=== PATIENT | female | born 1975 | race Caucasian/White ===

== ENCOUNTER 2018-04-24 05:30 | Inpatient (IN) | payer MEDICARE ==
[~2018-04-24 05:30] MED LIST: Buffered Lidocaine 0.9% SYRIN* 5 ML/SYR SYRINGE INTRADERM ONE
--- OUTSIDE RECORDS SUMMARY | 2018-04-24 05:34 | XMS REPORT ---
:1975 External Reference #:[id number] Author Organization [facility] Address [address] [address] Phone [phone] Care Team Providers Name Role Phone Sheeba Ortez MD Primary Care Physician Unavailable Payers Type Date Identification Numbers Payment Provider Subscriber Medicare Primary Policy Number: [id number] Medicare [place] PayID: [id number] [address] [place] [address] [facility] Policy Number: [id number] Medicaid [place] Group Name: 1 1 [address] PayID: [id number] [place] [address] Problems Date Description Provider Status Onset: 10/27/2017 Chondromalacia of patella Sheldon Jimenez M.D. Active Onset: 10/27/2017 Enthesopathy of knee Sheldon Jimenez M.D. Active Onset: 10/27/2017 Derangement of knee Sheldon Jimenez M.D. 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 ETOH Use Denies alcohol use Smoking Patient is a current smoker, smokes every day Recreational Drug Use Denies Drug Use Smoking Heavy tobacco smoker (more than 10 cigarettes/day) Exercise Type/Frequency Exercises rarely Allergies, Adverse Reactions, Alerts Date Description Reaction Status Severity Comments 02/07/2015 Vancomycin Urticaria active Medications Medication Date Status Form Strength Qnty SIG Indications Ordering Provider Valacyclovir HCL 00/ Active Tablets 1gm 1 tab Unknown 0000 daily Abilify / Active Tablets 20mg 1 by Unknown 0000 mouth every day Depakote / Active Tablets 500mg [address] by mouth tid a day Lyrica / Active Capsules 300mg 1 by Unknown 0000 mouth tid Multi Complete / Active Capsules daily Unknown 0000 Hydrochlorothiazide / Active Capsules 12.5mg 1 by Unknown 0000 mouth every day Nexium / Active Capsules 20mg [address] mouth every day Levothyroxine Sodium / Active Tablets 25mcg 1 by Unknown 0000 mouth every day Hydrochlorothiazide / Active Tablets 25mg 1 by Unknown 0000 mouth every day Pristiq / Active Tablets 50mg 1 by Unknown 0000 ER 24HR mouth every day Naprosyn 10/27/ Hx Tablets 500mg 60tab One tab M22.41 Sheldon 2018 - s PO bid Tony 01/02/ kathi M.[place] 2017 Cyclobenzaprine HCL / Hx Tablets 10mg one by Unknown 0000 - mouth 10/03/ three 2018 times a day as needed spasm Quetiapine Fumarate / Hx Tablets 100mg 1 by Unknown 0000 - mouth 2017 day Omeprazole / Hx Capsules 20mg 1 by Unknown 0000 - DR mouth 09/27/ 2017 day Sucralfate / Hx Tablets 1gm 1 by Unknown 0000 - mouth 09/27/ twice a 2017 day Oxycodone-Acetaminoph / Hx Tablets 10-325mg 1 tab Unknown en 0000 - by 2017 three times a day as needed Cymbalta / Hx Caps DR 60mg 1 by Unknown 0000 - Part mouth 2017 day Lyrica / Hx Capsules 300mg 1 by Unknown 0000 - mouth a day 2018 Suboxone / Hx Film 8'2 strip Unknown 0000 - sl 03/06/ twice a 2017 day Wellbutrin XL / Hx Tablets 300mg 1 by Unknown 0000 - ER 24HR mouth 2017 day Naproxen Sodium ER / Hx Tablets 500mg take Unknown 0000 - ER 24HR one 07/02/ /tablet 2018 daily by mouth as needed for pain, if pain is severe, you may take up to 2 pills daily for 3 days as needed Vital Signs Date Vital Result Comment 03/28/2018 Height 71 inches 5'11" Weight 220.00 lb Heart Rate 84 /min BP Systolic Recheck 132 mmHg BP Diastolic Recheck 84 mmHg Respiratory Rate 16 /min Body Temperature 98.5 F BMI (Body Mass Index) 30.7 kg/m2 02/28/2018 Height 71 inches 5'11" Weight 228.00 lb Heart Rate 84 /min BP Systolic Recheck 132 mmHg BP Diastolic Recheck 84 mmHg Respiratory Rate 16 /min Body Temperature 98.0 F BMI (Body Mass Index) 31.8 kg/m2 01/27/2018 Height 71 inches 5'11" Weight 221.00 lb Heart Rate 84 /min BP Systolic Recheck 128 mmHg BP Diastolic Recheck 84 mmHg Respiratory Rate 16 /min Body Temperature 98.2 F BMI (Body Mass Index) 30.8 kg/m2 12/22/2017 Height 71 inches 5'11" Weight 220.00 lb Heart Rate 80 /min BP Systolic Recheck 124 mmHg BP Diastolic Recheck 78 mmHg Respiratory Rate 16 /min Body Temperature 98.0 F BMI (Body Mass Index) 30.7 kg/m2 10/27/2017 Height 71 inches 5'11" Weight 210.00 lb Heart Rate 76 /min BP Systolic Recheck 124 mmHg BP Diastolic Recheck 82 mmHg Respiratory Rate 16 /min Body Temperature 98.3 F BMI (Body Mass Index) 29.3 kg/m2 02/07/2015 Height 71 inches 5'11" Weight 217.00 lb Heart Rate 78 /min BP Systolic Sitting 128 mmHg BP Diastolic Sitting 82 mmHg Pain Level 5 neck BMI (Body Mass Index) 30.3 kg/m2 Results Description No Information Procedures Date CPT Code Description Status 02/17/2018 27285 Arthroscopy,Knee,Diagnostic, W Or W/O Synovial BX Completed Encounters Type Date Location Provider CPT E/M Dx Office Visit 01/27/2018 [facility], 09289 M22.41 10:15a [facility] M17.11 Office Visit 12/22/2017 11:15a [facility]ldon Jimeenz, [address] M22.2x1 Of [facility] M.D. M70.51 M22.41 Office Visit 10/27/2017 10:00a [facility] Jimenez, 20276 M22.2x1 Of [facility] M.D. M70.51 M22.41 M22.2x2 M70.52 M22.42 Office Visit 02/07/2015 11:00a [facility] Scott Kaufman, [address] 723.1 Of [facility] 721.0 Plan of Care 03/28/2018 - Sheldon Jimenez M.D.M17.11 Unilateral primary osteoarthritis, right kneeFollow up:4 weeks after knee surgery
[2018-04-24] MEDS ORDERED: ceFAZolin 2 GM PREMIX in ORs 2 GM/50 ML BAG IVPB ONE (06:08)
[2018-04-24] MEDS ORDERED: Buffered Lidocaine 0.9% SYRIN* 5 ML/SYR SYRINGE ONE (06:08)
[2018-04-24] MEDS ORDERED: Bupivacaine 0.5% SDV PF* 30ML VIAL ONE ×2 (07:18→07:41)
[2018-04-24] MEDS ORDERED: Lidocaine 1% MPF wEPI 200,000* 30 ML SDV ONE (07:18)
[2018-04-24] MEDS ORDERED: Levalbuterol 0.63MG/3ML NEB* UNIT OF USE INH ONE (07:30)
[2018-04-24] MEDS ORDERED: fentaNYL* 50 MCG/ML 2 ML VIAL (100 MCG VIAL) ONE ×2 (07:35→10:58)
[2018-04-24] MEDS ORDERED: Midazolam* 1 MG/ML 2 ML VIAL (2 MG) ONE (07:35)
[2018-04-24] MEDS ORDERED: ROPIVACAINE 5 MG/ML 30 ML BTL (0.5%) ONE (07:44)
[2018-04-24] MEDS ORDERED: Tranexamic Acid 1,000 MG in NS 0.9% 50 ML IV ONE (08:00)
[2018-04-24] MEDS ORDERED: Ondansetron INJ* 2 MG/ML VIAL ONE (08:06)
[2018-04-24] MEDS ORDERED: Lidocaine 2% PF * 5 ML VIAL ONE (08:06)
[2018-04-24] MEDS ORDERED: Dexamethasone IV* 4 MG/ML 1 ML (4 MG) ONE (08:06)
[2018-04-24] MEDS ORDERED: Propofol* 10 MG/ML 20 ML BTL IV PUSH ONE (08:06)
[2018-04-24] MEDS ORDERED: Glycopyrrolate IV* 0.2 MG/ML 1 ML VIAL ONE (08:48)
[2018-04-24] MEDS ORDERED: Naloxone* 0.4 MG/ML 1 ML VIAL IV PRN (09:12)
[2018-04-24] MEDS ORDERED: Ibuprofen TAB* 600 MG PO PRN (09:12)
[2018-04-24] MEDS ORDERED: Acetaminophen TAB* 325 MG PO PRN (09:12)
[2018-04-24] MEDS ORDERED: diPHENhydraMINE PO* 25 MG PO PRN (10:25)
[2018-04-24] MEDS ORDERED: Magnesium Hydroxide LIQ* 30 ML UDC PO PRN (10:25)
[2018-04-24] MEDS ORDERED: Ondansetron TAB* 4 MG PO PRN (10:25)
[2018-04-24] MEDS ORDERED: diPHENhydraMINE IV* 50 MG/ML 1 ml VIAL (BENADRYL) IV PRN (10:25)
[2018-04-24] MEDS ORDERED: Ondansetron ODT TAB* 4 MG PO PRN (10:25)
[2018-04-24] MEDS ORDERED: Clobetasol 0.05% OINT* 30 GM TUBE TOPICAL PRN (10:31)
[2018-04-24] MEDS: Pregabalin CAP(*) 300 MG PO SCH ×3 (10:44→21:52)
[2018-04-24] MEDS ORDERED: Ketorolac INJ* 30 MG/ML 1 ML VIAL ONE (10:58)
[2018-04-24] MEDS ORDERED: oxyCODONE TAB* 5 MG TAB ONE (10:58)
[2018-04-24] MEDS ORDERED: HYDROcodone/ACETAMIN 5-325 MG* 1 TAB ONE (10:59)
[2018-04-24] MEDS ORDERED: Heparin VIAL(*) 5000 UNITS/ML VIAL (FIVE THOUSAND) SUBCUT SCH ×2 (11:00→14:00)
[2018-04-24] MEDS: Ketorolac INJ* 30 MG/ML 1 ML VIAL IV PUSH SCH ×3 (11:03→23:16)
[2018-04-24] MEDS ORDERED: Morphine VIAL* 4 MG/ML VIAL (1 ml vial) ONE (12:39)
[2018-04-24] MEDS: D5W 1/2 NS 1000 ML BAG* 1,000 ML IV SCH ×2 (12:44→23:57)
[2018-04-24] MEDS: Acetaminophen TAB* 325 MG PO SCH ×2 (13:23→21:23)
[2018-04-24] MEDS: traMADol TAB* 50 MG PO SCH ×2 (13:24→18:41)
[2018-04-24] MEDS ORDERED: Cyclobenzaprine TAB* 10 MG PO PRN (13:36)
[2018-04-24] MEDS ORDERED: Divalproex DR TAB(*) 500 MG PO SCH (14:00)
[2018-04-24] MEDS: oxyCODONE TAB* 5 MG TAB PO PRN ×2 (14:47→20:03)
[2018-04-24] MEDS: ceFAZolin 1 GM in Dextrose (*) 1 GM/50 ML BAG IVPB SCH (15:58)
[2018-04-24] MEDS: Nicotine PATCH 14 MG/24 HR* PATCH TRANSDERM SCH (15:59)
[2018-04-24] MEDS: Diazepam TAB(*) 5 MG PO PRN (16:05)
[2018-04-24] MEDS ORDERED: Warfarin TAB(*) 10 MG PO ONE (17:00)
[2018-04-24] MEDS: Docusate CAP* 100 MG PO SCH (20:03)
[2018-04-24] MEDS: Magnesium Hydroxide LIQ* 30 ML UDC PO SCH (20:03)
[2018-04-24] MEDS: Morphine VIAL* 4 MG/ML VIAL (1 ml vial) IV PRN (21:44)
[2018-04-24] MEDS: Pregabalin CAP(*) 100 MG PO SCH (21:50)
[2018-04-25] MEDS: ceFAZolin 1 GM in Dextrose (*) 1 GM/50 ML BAG IVPB SCH ×2 (00:02→07:53)
[2018-04-25] MEDS: oxyCODONE TAB* 5 MG TAB PO PRN ×2 (00:06→04:04)
[2018-04-25] MEDS: traMADol TAB* 50 MG PO SCH ×2 (01:03→06:51)
[2018-04-25] MEDS: Morphine VIAL* 4 MG/ML VIAL (1 ml vial) IV PRN ×4 (02:26→14:55)
--- NOTE | 2018-04-25 04:13 | OP ---
DATE OF OPERATION: 04/24/18 - ROOM #343 DATE OF : 79 ATTENDING SURGEON: Sheldon Jimenez MD VALUE STREAM COACH: Colleen Acosta RPA ANESTHESIA: Regional and general. PRE-OP DIAGNOSIS: Osteoarthritis, right knee. POST-OP DIAGNOSIS: Osteoarthritis, right knee. OPERATIVE PROCEDURE: Right total knee arthroplasty. ESTIMATED BLOOD LOSS: Less than 50 cc. COMPLICATIONS: None. HARDWARE: Yoana Persona #6 femur, E tibia, 10-mm polyethylene spacer, 35 mm all polyethylene patellar button. SUMMARY: Ms. العراقي is a 42-year-old female who reports many years worth of bilateral knee pain. When she presented, she had diffuse pain about the patella and initially had been treated conservatively with physical therapy and anti-inflammatories. She was still at pain and because of a spinal stimulator, was unable to have an MRI. CAT scan did show complete loss of the patellofemoral joint where the bone of the patellar was sitting on the bone of the medial femoral condyle. She then underwent a diagnostic knee arthroscopy to evaluate the rest of the knee because if she had good cartilage and menisci in the medial and lateral compartments, I discussed with her doing a partial knee arthroplasty rather than a total. Diagnostic knee arthroscopy showed significant wear on the femoral side of the medial femoral condyle. We sat and talked quite a bit about knee replacement surgery, specifically how my concern about a partial replacement was that as time would go by, she would need a revision to a total knee. The plan that we came to is that we would do a total knee arthroplasty to hopefully avoid the multiple revisions. History of pain medicine usage is an issue as well; she was on bupropion when she first presented, but was getting off of it as she had weaned herself away from the chronic oxycodone that she had been prescribed in the past for her chronic back pain. [place] [facility] [place] she underwent a preoperative genicular block so that we would hopefully have better control of her postoperative pain. The usual risks of surgery such as infection , scar formation, stiffness, DVT, pulmonary embolism, hardware failure were also discussed and she had wished to proceed. I also made it clear that the surgery was just getting the parts into the knee and that the outcome would be dependent on her working with physical therapy to rehab the knee and restore strength, motion, and function. DESCRIPTION OF PROCEDURE: The patient had a block placed in the holding area and was brought back to the OR. LMA was then placed. Reis catheter was also placed. Tourniquet was placed over the proximal right thigh and was used during the case. Total tourniquet time would be 70 minutes. Right knee was then prepped and then draped. Esmarch was used to exsanguinate the leg and the tourniquet was raised. Midline incision was made centered about the patella, was carried for about 6 cm above the patellar and carried down to the medial side of the tibial tubercle. Incision was carried down to the skin and subcutaneous tissues. Small bleeders encountered were ligated using electrocautery. Extensor mechanism was exposed and a sharp parapatellar arthrotomy was made. Quite a bit of clear yellowish joint fluid was encountered. Soft tissues were sharply elevated from the medial side of the tibia and the fat pad were sharply excised. Patella measured 20 mm in thickness and a nice 8 mm cut was taken. She also had bone beyond the inferior pole of the patella, but this was fully embedded within the patellar tendon, so this was not then excised as I did not want to damage that part of her patellar tendon attachments. The patella was then easily subluxated laterally and the knee was flexed up. Nice exposure of the distal femur was obtained. Step drill was used to open the femoral canal. An intramedullary guide was placed. Outrigger was adjusted until it was parallel with the epicondyles and then distal femoral cutting guide was pinned into place. Cutting guide was set at 2 mm of resection with 3 degrees of angulation. This was based on the preoperative measurements and I thought this would give us the essentially perfect alignment. Distal femoral cut was taken. It appeared a nice cut was obtained. Femur was sized and she sat nicely for a 6. Cutting guide was placed , but running through the superior hole, she was sitting a little bit low and appeared I would notch the femur. Cutting guide was moved up several times until the drill came through on the top side of the femur. Cutting guide was then pinned into place and the anterior and posterior femoral cuts followed by the chamfer cuts were taken. Attention was turned to the tibia. Step drill was used to open the tibial canal and the intramedullary guide was placed. Outrigger was assembled and adjusted until it appeared it would take 2 mm from the medial side. Cutting guide was then pinned into place and the proximal tibial cut was taken. Spacer block was then placed and her alignment appeared to be excellent. She was loose in flexion as the system is designed to take an extra 2 mm from the posterior condyles. Tibia was sized and she sat nicely for an E. Proximal tibia was drilled and then punched. Femoral trial was placed and the notch cut was finished and stud holes were drilled. She was trialed with a 10 and came out nicely until full extension, had good stability, and flexed quite easily. Patellar tracking was fine even without the patellar button. Patellar was sized and a 35 seemed to fit perfectly. Holes were drilled and patella was snapped into place. Patellar tracking was still perfect. Trial instrumentation was removed and the knee was copiously pulse lavaged. Cement was being prepared. Posterior aspect of the knee and lateral gutter was injected with a mixture of 30 cc of 2% lidocaine with epinephrine and 0.5% Marcaine. Tibia followed by femur and patellar were all cemented into place. Excess cement was removed and cement was allowed to harden. Once the cement had hardened, she was trialed again with a 10 and had the same wonderful motion and stability. Knee was copiously pulse lavaged and searched for excess cement. Few small pieces were found. Knee was again pulse lavaged and a 10 polyethylene was then snapped into place. Knee was again pulse lavaged and the parapatellar arthrotomy was repaired using interrupted #1 Vicryl sutures. Tourniquet was let down and one bleeder was easily seen and ligated using electrocautery. Knee was again pulse lavaged and the subcutaneous tissues were reapproximated with 2-0 Vicryl. Skin was closed using domenic. Sterile dressing was applied. The patient had the LMA removed in the OR and was stable on transfer to the recovery room. [id number]/[facility] #: [id number] MANFRED
[2018-04-25 05:02] LABS: Hematocrit 34 % (35-47); Mean Platelet Volume 8.3 fL (7.4-10.4); Platelet Count 145 10^3/ul (150-450)
[2018-04-25] MEDS: Acetaminophen TAB* 325 MG PO SCH ×3 (05:07→21:16)
[2018-04-25] MEDS: Ketorolac INJ* 30 MG/ML 1 ML VIAL IV PUSH SCH ×3 (05:08→16:56)
[2018-04-25 05:22] LABS: INR 0.95 (0.77-1.02)
[2018-04-25 05:33] LABS: EGFR Non-African American 86.9 (>60)
[2018-04-25] MEDS: Levothyroxine TAB* 25 MCG TAB PO SCH (06:13)
[2018-04-25] MEDS: Nicotine Patch Removal NOTE FOLLOW UP SCH (06:13)
[2018-04-25] MEDS: Pregabalin CAP(*) 100 MG PO SCH ×3 (06:13→21:19)
[2018-04-25] MEDS: Omeprazole CAP* 20 MG PO SCH (07:54)
--- NOTE | 2018-04-25 08:01 | PN ---
Progress Note - Progress Note Date of Service: 04/25/18 SOAP: Subjective: []Patient seen at bedside, having some difficulty with pain management. Feels Tramadol not helpful. Requesting adjustment in pain medications. Denies SOB, CP, palpitations or dizziness. Objective: [] Vital Signs Temp 97.6 F 04/25/18 04:16 Pulse 65 04/25/18 04:16 Resp 18 04/25/18 06:51 BP 104/53 04/25/18 04:16 Pulse Ox 99 04/25/18 04:16 Intake & Output 04/24/18 04/25/18 04/25/18 18:59 06:59 18:59 Intake Total 2790 1950 Output Total 500 850 Balance 2290 1100 Intake: IV Fluids 2350 990 D5 1/2 NS 990 LR 2300 NS 50ML, Cefazolin 2G 50 Oral 440 960 Output: Reis 250 850 Estimated Blood Loss 250 Laboratory Results - last 24 hr 04/25/18 04/25/18 04/25/18 04:39 04:39 04:39 Hgb 12.0 Hct 34 L Plt Count 145 L MPV 8.3 INR (Anticoag Therapy) 0.95 Sodium 139 Potassium 3.3 L Chloride 105 Carbon Dioxide 28 Anion Gap 6 BUN 19 Creatinine 0.74 Est GFR ( Amer) 105.2 Est GFR (Non-Af Amer) 86.9 BUN/Creatinine Ratio 25.7 H Glucose 118 H Calcium 7.6 L Right knee HUE dry and intact Has baseline foot drop RLE, ankle to neutral calf NT and soft 2+ pedal pulse sensation intact RLE Assessment: []s/p Right total knee arthroplasty POD #1 Plan: []PT/OT WBAT RLE Dressing change 04/26 discontinue Tramadol, increase Oxycodone to 10 mg Coumadin with heparin bridge, 8 mg today Home with outpatient PT and labwork when pain well managed and mastered PT/OT goals.
[2018-04-25] MEDS ORDERED: oxyCODONE TAB* 5 MG TAB PO PRN (08:03)
[2018-04-25] MEDS: ARIPiprazole TAB* 5 MG PO SCH (09:00)
[2018-04-25] MEDS: CMC:Desvenlafaxine (NF) 50 MG TAB PO SCH (09:00)
[2018-04-25] MEDS ORDERED: Hydrochlorothiazide TAB* 25 MG PO SCH ×2 (09:00)
[2018-04-25] MEDS: ValACYclovir (*) 1 GM TAB PO SCH (09:00)
[2018-04-25] MEDS: Docusate CAP* 100 MG PO SCH ×2 (09:00→21:16)
[2018-04-25] MEDS: Magnesium Hydroxide LIQ* 30 ML UDC PO SCH ×2 (09:01→21:17)
[2018-04-25] MEDS: Divalproex ER TAB(*) 500 MG PO SCH (09:08)
[2018-04-25] MEDS: Nicotine PATCH 14 MG/24 HR* PATCH TRANSDERM SCH (10:27)
[2018-04-25] MEDS: Diazepam TAB(*) 5 MG PO PRN ×2 (10:31→18:36)
[2018-04-25] MEDS: Potassium Chlor TAB* 20 MEQ TAB.ER PO SCH (12:51)
[2018-04-25] MEDS ORDERED: traMADol TAB* 50 MG PO PRN (13:11)
[2018-04-25] MEDS ORDERED: HYDROcodone/ACETAMIN 5-325 MG* 1 TAB PO PRN (13:12)
[2018-04-25] MEDS ORDERED: Morphine TAB Extended Release (*) 15 MG TAB.ER PO SCH (14:00)
[2018-04-25] MEDS: Heparin VIAL(*) 5000 UNITS/ML VIAL (FIVE THOUSAND) SUBCUT SCH ×2 (14:49→21:17)
[2018-04-25] MEDS ORDERED: Warfarin TAB(*) 4 MG PO ONE (17:00)
[2018-04-25] MEDS: HYDROcodone/ACETAMIN 5-325 MG* 1 TAB PO PRN (17:19)
[2018-04-25] MEDS ORDERED: Amitriptyline TAB* 25 MG PO SCH (21:00)
[2018-04-25] MEDS: oxyCODONE TAB* 5 MG TAB PO SCH (23:15)
[2018-04-26] MEDS: Ketorolac INJ* 30 MG/ML 1 ML VIAL IV PUSH SCH ×3 (00:56→11:20)
[2018-04-26] MEDS: Diazepam TAB(*) 5 MG PO PRN (04:02)
[2018-04-26] MEDS: Acetaminophen TAB* 325 MG PO SCH (05:12)
[2018-04-26 05:45] LABS: Hematocrit 34 % (35-47); Hemoglobin 12.2 g/dl (12.0-16.0); Mean Platelet Volume 7.4 fL (7.4-10.4); Platelet Count 127 10^3/ul (150-450)
[2018-04-26 05:50] LABS: INR 1.62 (0.77-1.02)
[2018-04-26] MEDS: Pregabalin CAP(*) 100 MG PO SCH ×2 (06:20→11:20)
[2018-04-26] MEDS: Heparin VIAL(*) 5000 UNITS/ML VIAL (FIVE THOUSAND) SUBCUT SCH (06:20)
[2018-04-26] MEDS: Levothyroxine TAB* 25 MCG TAB PO SCH (06:21)
[2018-04-26] MEDS: Nicotine Patch Removal NOTE FOLLOW UP SCH (06:21)
[2018-04-26] MEDS: oxyCODONE TAB* 5 MG TAB PO SCH (06:21)
[2018-04-26] MEDS: Omeprazole CAP* 20 MG PO SCH (07:50)
[2018-04-26] MEDS: Docusate CAP* 100 MG PO SCH (08:57)
[2018-04-26] MEDS: HYDROcodone/ACETAMIN 5-325 MG* 1 TAB PO PRN (08:57)
[2018-04-26] MEDS: Potassium Chlor TAB* 20 MEQ TAB.ER PO SCH (08:58)
[2018-04-26] MEDS: CMC:Desvenlafaxine (NF) 50 MG TAB PO SCH (08:58)
[2018-04-26] MEDS: ARIPiprazole TAB* 5 MG PO SCH (08:58)
[2018-04-26] MEDS: Divalproex ER TAB(*) 500 MG PO SCH (08:58)
[2018-04-26] MEDS: ValACYclovir (*) 1 GM TAB PO SCH (08:58)
[2018-04-26] MEDS: Nicotine PATCH 14 MG/24 HR* PATCH TRANSDERM SCH (09:00)
[2018-04-26 09:22] LABS: EGFR Non-African American 79.4 (>60)
[2018-04-26] MEDS: Magnesium Hydroxide LIQ* 30 ML UDC PO SCH (10:00)
--- NOTE | 2018-04-26 10:27 | PN ---
Progress Note - Progress Note Date of Service: 04/26/18 SOAP: Subjective: []Patient seen and examined at bedside. Her pain is better controlled today. Denies CP, SOB, dizziness, nausea. Objective: []General: Well appearing, NAD RLE: Right knee dressing changed, incision CDI without erythema or discharge. Thigh is soft. DF/PF intact, sensation intact distally, DP2+ Calves supple and nontender without erythema, edema or palpable cords Assessment: [] s/p Right total knee arthroplasty POD #2 Plan: []PT/OT WBAT RLE Coumadin with heparin bridge, 6 mg today DC to Home with outpatient PT and labwork Pain control discussed with Dr Jimenez, patient will be sent home with oxycodone 10 mg TID week 1, BID week two and QD week three. She can use tramadol for breakthrough pain. I will also put her on celebrex Vital Signs Temp 98.9 F 04/26/18 07:25 Pulse 82 04/26/18 07:25 Resp 18 04/26/18 08:57 BP 128/58 04/26/18 07:25 Pulse Ox 94 04/26/18 08:00 Intake & Output 04/25/18 04/26/18 04/26/18 18:59 06:59 18:59 Intake Total 2005 290 230 Output Total 700 800 Balance 1306 -510 230 Intake: IV Fluids 1056 ABX - CEFAZOLIN 50 D5 1/2 NS 1006 Oral 950 290 230 Output: Urine 700 800 Other: Estimated Void Large # Voids 1 Laboratory Last Values Hgb 12.2 g/dl (12.0-16.0) 04/26/18 05:34 Hct 34 % (35-47) L 04/26/18 05:34 Plt Count 127 10^3/ul (150-450) L 04/26/18 05:34 MPV 7.4 fL (7.4-10.4) 04/26/18 05:34 INR (Anticoag Therapy) 1.62 (0.77-1.02) H 04/26/18 05:34 Sodium 138 mmol/L (135-145) 04/26/18 05:34 Potassium 3.9 mmol/L (3.5-5.0) 04/26/18 05:34 Chloride 103 mmol/L (101-111) 04/26/18 05:34 Carbon Dioxide 33 mmol/L (22-32) H 04/26/18 05:34 Anion Gap 2 mmol/L (2-11) 04/26/18 05:34 BUN 14 mg/dL (6-24) 04/26/18 05:34 Creatinine 0.80 mg/dL (0.51-0.95) 04/26/18 05:34 Est GFR ( Amer) 96.1 (>60) 04/26/18 05:34 Est GFR (Non-Af Amer) 79.4 (>60) 04/26/18 05:34 BUN/Creatinine Ratio 17.5 (8-20) 04/26/18 05:34 Glucose 109 mg/dL (70-100) H 04/26/18 05:34 Calcium 8.1 mg/dL (8.6-10.3) L 04/26/18 05:34
[2018-04-26 11:14] VITALS: BP 132/69
--- NOTE | 2018-04-27 08:49 | DS ---
AMENDED REPORT NOW INCLUDES DESIGNATED COSIGNER DISCHARGE SUMMARY: DATE OF ADMISSION: 04/24/18 DATE OF DISCHARGE: 04/26/18 SURGEON AND ATTENDING ORTHOPEDIC PROVIDER: Dr. Sheldon Jimenez.* (DICTATED BY CHRISTA PRIEST) SENIOR JAVA ARCHITECT: CHRISTA Priest. PRE-OP DIAGNOSIS: Osteoarthritis of the right knee. OPERATIVE PROCEDURE: Left total knee arthroplasty. HISTORY: Ms. العراقي is a 42-year-old female with years of increasingly severe right knee pain that was not relieved with conservative management. She elected to undergo left total knee arthroplasty. HOSPITAL COURSE: The patient was admitted to [facility] on . She underwent right total knee arthroplasty without complication. Postop day 1, she was well appearing, in no acute distress. Dressing was clean, dry, and intact. Dorsiflexion and plantarflexion intact. Sensation intact distally. She was having difficulty with pain, so consultation with Pain Management occurred who recommended placing her on long-acting morphine, tramadol, [place], and amitriptyline. This was not successful in controlling her pain, later that night Dr. Jimenez added 10 mg of oxycodone, which did seem to help her pain. Postop day 2, she was well appearing, in no acute distress. Right knee dressing was changed. Incision is clean, dry, and intact without erythema and discharge. Thigh was soft. Dorsiflexion and plantarflexion intact. Sensation intact distally. Dorsalis pedis pulses 2+. Calf supple, nontender without erythema edema or palpable cords. Vital Signs: Temperature 98.9, pulse 83, respiratory rate 18, blood pressure 128/54, pulse ox 94. LAB VALUES: Hemoglobin 12.2, hematocrit 34. INR 1.62. Potassium 3.9. DISCHARGE MEDICATIONS: 1. Celebrex 200 mg p.o. q.a.m. 2. Keflex 500 mg capsules per instructions to continue until the end of prescription. 3. Hydrochlorothiazide 37.5 mg p.o. q.a.m. 4. Multivitamin 1 tab p.o. q.a.m. 5. Lyrica 300 mg p.o. at 0600, 1200, and 2100. 6. Valtrex 1 g p.o. q.a.m. 7. Levothyroxine 25 mcg p.o. q.a.m. 8. Nexium 20 mg p.o. q.a.m. 9. Depakote 500 mg p.o. t.i.d. 10. Abilify 10 mg p.o. q.a.m. 11. Betamethasone 0.05% ointment 1 tube application p.o. q.a.m. 12. Desvenlafaxine ER 50 mg p.o. daily. 13. Acetaminophen 975 mg p.o. q.8 hours. 14. Amitriptyline 25 mg p.o. at bedtime. 15. Docusate 100 mg p.o. b.i.d. 16. Nicotine patch please remove in next 24 hours. 17. Oxycodone 10 mg p.o. q.8 hours for 1 week. We will then transition to 10 mg p.o. q.12 hours for the following week and the third week she will be at 10 mg p.o. q.24 hours. 18. Tramadol 50 mg p.o. q.6 hours p.r.n. 19. Warfarin 2 mg tabs 1 to 3 times daily. Dose depends on INR. DISCHARGE PLAN: The patient will be weightbearing as tolerated. She will be discharged to home. She will have INR draws at [facility] on Mondays and for Coumadin dosing. She will take 6 mg of Coumadin on 04/26/18. She will recheck INR on 04/27/18 for further dosing instructions. Pain control oxycodone 5 mg, week 1 please take 2 tabs every 8 hours, week 2 please take 2 tabs every 12 hours, week 3 please take 2 tabs daily. Ultram 60 mg 1 tab every 6 hours as needed for pain, max of 4 per day. Amitriptyline 25 mg take 1 tablet at bedtime for pain, discontinue when pain allows. Celebrex 100 mg p.o. q.12 hours for pain control and discontinue when pain allows. It seems the patient has Celebrex 200 mg tabs at home, it is okay if she does take Celebrex 200 mg once daily, if already has this at her house. Valium 5 mg to take 1 tab every 8 hours as needed for muscle spasm. Please wean off of Valium , oxycodone, and Ultram as soon as her pain allows. Hold these medications for sedation. Followup with Dr. Jimenez in 4 weeks, sooner with any questions or concerns. DISCHARGE DISPOSITION: To home. CHRISTA LOVELL [id number]/[facility] #: [id number] MANFRED
[2018-04-27] MEDS ORDERED: Hydrochlorothiazide TAB* 25 MG PO SCH (09:00)
== END 2018-04-26 12:15 | disposition home or self-care (01) | DRG 470 ==
LOC: AA 05:30 → MERGE 07:30 → SSU 10:25
PROVIDERS: ADMIT Orthopaedic Surgery; ATTEND Orthopaedic Surgery
PROC: 0SRC0J9 Replacement of Right Knee Joint with Synthetic Substitute, Cemented, Open Approach (ICD-10-PCS; principal; 2018-04-24 07:30)
DX: M17.11 Unilateral primary osteoarthritis, right knee (principal); F17.210 Nicotine dependence, cigarettes, uncomplicated; I10 Essential (primary) hypertension; K21.9 Gastro-esophageal reflux disease without esophagitis; E03.9 Hypothyroidism, unspecified; F31.9 Bipolar disorder, unspecified; G89.29 Other chronic pain; F41.9 Anxiety disorder, unspecified; M54.9 Dorsalgia, unspecified; Z88.1 Allergy status to other antibiotic agents; Z98.1 Arthrodesis status; Z79.01 Long term (current) use of anticoagulants
CPT/HCPCS: 36415; 80048; 81025; 85014; 85018; 85049; 85610; 88305; 88311; 90686; A9270-GY; C1776; G8978-GP-CJ; G8979-GP-CI; G8987-GO-CJ; G8988-GO-CJ; G8989-GO-CJ; J0690; J1100; J1644; J1885; J2001; J2250; J2270; J2405; J2704; J2795; J3010

== ENCOUNTER → 2018-05-12 15:22 | Emergency (ER) | payer MEDICARE, MEDICAID ==
--- OUTSIDE RECORDS SUMMARY | 2018-05-12 15:46 | XMS REPORT | Continuity of Care Document ---
:1975 External Reference #:[id number] Author Name SudarshanCecea Care Team Providers Name Role Phone Sheeba Ortez MD Primary Care Physician Unavailable Payers Type Date Identification Numbers Payment Provider Subscriber Policy Number: [id number] Medicare Tyra العراقي PayID: [id number] [address] [place] [address] Policy Number: [id number] Medicaid Tyra العراقي Group Name: 1 1 [address] PayID: [id number] [place] [address] Advance Directives Description No Information Available Problems Date Description Provider Status Onset: 05/04/2018 Encounter for other orthopedic Sheldon Jimenez M.D. Active aftercare Onset: 05/04/2018 Arthroplasty of knee Sheldon Jimenez M.D. Active Onset: 05/04/2018 Localized, primary osteoarthritis Sheldon Jimenez M.D. Active Onset: 10/27/2017 Chondromalacia of patella Sheldon Jimenez M.D. Active Onset: 10/27/2017 Enthesopathy of knee Sheldon Jimenez M.D. Active Onset: 10/27/2017 Derangement of knee Sheldon Jimenez M.D. 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 ETOH Use Denies alcohol use Tobacco Use Start: Unknown Patient is a current smoker, smokes every day Recreational Drug Use Denies Drug Use Tobacco Use Start: Unknown Heavy tobacco smoker (more than 10 cigarettes/day) Smoking Status Reviewed: 05/04/18 Heavy tobacco smoker (more than 10 cigarettes/day) Exercise Type/Frequency Exercises rarely Allergies, Adverse Reactions, Alerts Date Description Reaction Status Severity Comments 02/07/2015 Vancomycin Urticaria Active Medications Medication Date Status Form Strength Qnty SIG Indications Ordering Provider Oxycodone HCL 05/04 Active Tablets 10mg 6tabs one tab by M17. mouth qhs Tony, as needed M.D. (in addition to the 4 5 mg tabs daily) Amitriptyline HCL 04/26 Active Tablets 25mg 14tab 1 tab daily s before bed Leonard Jimenez Docusate Sodium 04/26 Active Tablets 100mg 90tab 1 tab every s 12 hours as Tony, needed for M.D. constipatio n Oxycodone HCL 04/26 Active Tablets 5mg 28tab 2 tabs by s mouth twice Tony, a day as M.D. needed, or can use one tab every 6 hours as needed instead, mdd [address] Ultram 04/26 Active Tablets 50mg 56tab 2 tab every s 6 hours as Tony, needed for M.D. pain, take with 2 regular strength tylenol Celebrex 04/26 Active Capsules 100mg 30cap 1 tab every s 12 hours as Tony, needed for M.D. pain Coumadin 04/26 Active Tablets 2mg 90tab 1-3 tabs s daily dose Tony, per inr M.D. draws Valium 04/26 Active Tablets 5mg 30tab 1 tab every s 8 hours as Tony, needed for M.D. spasm Walker [employer] 04/04 Active Misc 1-06/06" 1unit 1 rolling M1. Wheels/ s lita Jimenez, Adjustment 71 inches M.D. Holes/-06/06" wt 220 lbs Shower Chair 04/04 Active 1unit Disp 1 M112.07ne s shower Yakavitha, chair ht 71 MD wt220 Toilet Seat 04/04 Active Misc 1unit Disp 1 M17.11 [facility] s toilet seat Columba, josie ht 71 MD wt 220 Valacyclovir HCL Active Tablets 1gm 1 tab daily Unknown /0000 Abilify Active Tablets 20mg 1 by mouth Unknown /0000 every day Depakote Active Tablets 500mg 1 tab by Unknown /0000 DR mouth tid a day Lyrica Active Capsules 300mg 1 by mouth Unknown /0000 tid Multi Complete Active Capsules daily Unknown / Hydrochlorothiazid Active Capsules 12.5mg 1 by mouth Unknown e /0000 every day Nexium Active Capsules 20mg 1 by mouth Unknown / DR every day Levothyroxine Active Tablets 25mcg 1 by mouth Unknown Sodium /0000 every day Hydrochlorothiazid Active Tablets 25mg 1 by mouth Unknown e / every day Pristiq Active Tablets 50mg 1 by mouth Unknown / ER 24HR every day Naprosyn 10/27 Hx Tablets 500mg 60tab One tab PO M22.41 s bid Daniel Leach M.D. 01/02 Cyclobenzaprine Hx Tablets 10mg one by Unknown HCL /0000 mouth three - times a day 10/03 as needed spasm Quetiapine Hx Tablets 100mg 1 by mouth Unknown Fumarate / every day - 10/03 Omeprazole Hx Capsules 20mg 1 by mouth Unknown / DR every day - 09/27 Sucralfate Hx Tablets 1gm 1 by mouth Unknown /0000 twice a day - 09/27 Oxycodone-Acetamin Hx Tablets 10-325mg 1 tab by Unknown ophen /0000 mouth three - times a day 09/27 as needed /[address] 60mg 1 by mouth Unknown /0000 Part every day - 02/27 Lyrica Hx Capsules 300mg 1 by mouth Unknown /0000 a day - 10/03 Suboxone Hx Film 8'2 strip sl Unknown /0000 twice a day - 03/06 Wellbutrin XL Hx Tablets 300mg 1 by mouth Unknown /0000 ER 24HR every day - 02/27 Naproxen Sodium ER 00 Hx Tablets 500mg take one /0000 ER 24HR /tablet - daily by 11/28 mouth needed for pain, if pain is severe, you may take up to 2 pills daily for 3 days as needed Immunizations Description No Information Available Vital Signs Date Vital Result Comment 05/04/2018 8:55am Height 71 inches 5'11" Weight 239.00 lb Heart Rate 80 /min BP Systolic Recheck 132 mmHg BP Diastolic Recheck 84 mmHg Respiratory Rate 16 /min Body Temperature 98.0 F BMI (Body Mass Index) 33.3 kg/m2 03/28/2018 10:29am Height 71 inches 5'11" Weight 220.00 lb Heart Rate 84 /min BP Systolic Recheck 132 mmHg BP Diastolic Recheck 84 mmHg Respiratory Rate 16 /min Body Temperature 98.5 F BMI (Body Mass Index) 30.7 kg/m2 02/28/2018 10:42am Height 71 inches 5'11" Weight 228.00 lb Heart Rate 84 /min BP Systolic Recheck 132 mmHg BP Diastolic Recheck 84 mmHg Respiratory Rate 16 /min Body Temperature 98.0 F BMI (Body Mass Index) 31.8 kg/m2 01/27/2018 10:35am Height 71 inches 5'11" Weight 221.00 lb Heart Rate 84 /min BP Systolic Recheck 128 mmHg BP Diastolic Recheck 84 mmHg Respiratory Rate 16 /min Body Temperature 98.2 F BMI (Body Mass Index) 30.8 kg/m2 12/22/2017 11:18am Height 71 inches 5'11" Weight 220.00 lb Heart Rate 80 /min BP Systolic Recheck 124 mmHg BP Diastolic Recheck 78 mmHg Respiratory Rate 16 /min Body Temperature 98.0 F BMI (Body Mass Index) 30.7 kg/m2 10/27/2017 9:58am Height 71 inches 5'11" Weight 210.00 lb Heart Rate 76 /min BP Systolic Recheck 124 mmHg BP Diastolic Recheck 82 mmHg Respiratory Rate 16 /min Body Temperature 98.3 F BMI (Body Mass Index) 29.3 kg/m2 02/07/2015 11:08am Height 71 inches 5'11" Weight 217.00 lb Heart Rate 78 /min BP Systolic Sitting 128 mmHg BP Diastolic Sitting 82 mmHg Pain Level 5 neck BMI (Body Mass Index) 30.3 kg/m2 Results Test Date Facility Test Result H/L Range Note CBC Auto Diff 04/11/2018 [facility] White Blood 9.3 10^3/uL N 3.5-10.[address] [place] [address] [phone] Red Blood Count 4.52 10^6/uL N 4.00-5.40 Hemoglobin 15.2 g/dL N 12.0-16.0 Hematocrit 43 % N 35-47 Mean Corpuscular Volume 96 fL N 80-97 Mean Corpuscular Hemoglobin 34 pg High 27-31 Mean Corpuscular HGB Conc 35 g/dL N 31-36 Red Cell Distribution Width 14 % N 10.5-15 Platelet Count 165 10^3/uL N 150-450 Mean Platelet Volume 8.2 fL N 7.4-10.4 Abs Neutrophils 5.6 10^3/uL N 1.5-7.7 Abs Lymphocytes 3.2 10^3/uL N 1.0-4.8 Abs Monocytes 0.4 10^3/uL N 0-0.8 Abs Eosinophils 0.1 10^3/uL N 0-0.6 Abs Basophils 0 10^3/uL N 0-0.2 Abs Nucleated RBC 0 10^3/uL Granulocyte % 60.0 % N 38-83 Lymphocyte % 34.2 % N 25-47 Monocyte % 4.0 % N 0-7 Eosinophil % 1.3 % N 0-6 Basophil % 0.5 % N 0-2 Nucleated Red Blood Cells % 0 Inr/Protime 04/11/2018 [facility] Inr 0.80 N 0.77-1.[address] [place] [address] [phone] Laboratory test 04/11/2018 [facility] Partial 29.6 seconds N 26.0-36.[address] [place] [address] PTT [phone] Urinalysis 04/11/2018 [facility] Urine Color Yellow Profile [address] [place] [address] [phone] Urine Appearance Clear Urine Specific [place] 1.023 N 1.010-1.030 Urine pH 5.0 N 5-9 Urine Urobilinogen Negative Negative Urine Ketones Negative Negative Urine Protein Negative Negative Urine Leukocytes Negative Negative Urine Blood Negative Negative * * Abnormal Negative 3 Urine Nitrite Negative Negative Urine Bilirubin Negative Negative Urine Glucose Negative Negative Type & Screen 04/11/2018 [facility] Patient Blood Type A Negative [address] [place] [address] [phone] Antibody Screen NEGATIVE Comp Metabolic Panel 04/11/2018 [facility] Sodium 140 mmol/L N 135-[address] [place] [address] [phone] Potassium 4.1 mmol/L N 3.5-5.0 Chloride 106 mmol/L N 101-111 Co2 Carbon Dioxide 27 mmol/L N 22-32 Anion Gap 7 mmol/L N 2-11 Glucose 84 mg/dL N 70-100 Blood Urea Nitrogen 30 mg/dL High 6-24 Creatinine 0.78 mg/dL N 0.51-0.95 BUN/Creatinine Ratio 38.5 High 8-20 Calcium 9.5 mg/dL N 8.6-10.3 Total Protein 6.4 g/dL N 6.4-8.9 Albumin 4.1 g/dL N 3.2-5.2 Globulin 2.3 g/dL N 2-4 Albumin/Globulin Ratio 1.8 N 1-3 Total Bilirubin 0.30 mg/dL N 0.2-1.0 Alkaline Phosphatase 51 U/L N 34-104 Alt 16 U/L N 7-52 Ast 14 U/L N 13-39 Egfr Non- 81.8 >60 Egfr 99.0 >60 4 Laboratory test 04/11/2018 [facility] HCG < 0.60 mIU/ mL 5 [address] [place] [address] [phone] Urine Culture And 04/11/2018 [facility] Urine Culture SEE RESULT [address] [place] [address] [phone] 1 AA 04/24 2 AA 04/24 3 *Ascorbic acid is present which may interfere with detection of blood. 4 Because ethnic data is not always readily available, this report includes an eGFR for both -Americans and non- Americans. The National Kidney Disease Education Program (NKDEP) does not endorse the use of the MDRD equation for patients that are not between the ages of 18 and 70, are , have extremes of body size, muscle mass, or nutritional status, or are non- or non-. According to the National Kidney Foundation, irrespective of diagnosis, the stage of the disease is based on the level of kidney function: Stage Description GFR(mL/min/1.73 m(2)) 1 Kidney damage with normal or decreased GFR 90 2 Kidney damage with mild decrease in GFR 60-89 3 Moderate decrease in GFR 30-59 4 Severe decrease in GFR 15-29 5 Kidney failure <15 (or dialysis) 5 <5.0 Negative 5.0 - 25.0 Indeterminate (Repeat testing recommended after 72 hours) >25.0 Positive Perimenopausal women can display HCG levels of up to 20 mIU/mL 6 SEE RESULT BELOW Name: TYRA العراقي : [address]: Sheldon Jimenez MD Acct: [id number] Unit: [id number] AGE: 42 Location: [facility] Re04/11/18 SEX: F Status: REG REF SPEC: [id number] MAURICIO: 04/11/18-1215 [facility] DR: Sheldon Jimenez MD REQ: [id number] RECD: 04/11/183370 STATUS: COMP _ SOURCE: URINE SPDESC: ORDERED: Urine Culture COMMENTS: PAIGE 04/24 QUERIES: Urine Source: Clean Catch Procedure Result Reported Site Urine Culture Final 04/13/18- 0853 ML No Growth (<1,000 CFU/mL) * ML - Main Lab . END OF REPORT DEPARTMENT OF PATHOLOGY, [address] [place] [address] Andrea Isidro M.D. Director [facility] # [id number] Procedures Date Code Description Status 04/24/2018 15554 TKR Total Knee Replacement Completed 04/24/2018 61118 TKR Total Knee Replacement Completed 02/17/2018 50889 Arthroscopy,Knee,Diagnostic, W Or W/O Synovial BX Completed Encounters Type Date Location Provider Dx Diagnosis Office Visit 03/28/2018 Orthopedic Sheldon Jimenez M17.11 Unilateral primary 10:30a [facility] osteoarthritis, right AT [place] knee Office Visit 01/27/2018 Le Lazar2.41 Chondromalacia 10:15a [facility] patellae, right knee AT [place] M17.11 Unilateral primary osteoarthritis, right knee Office Visit 12/22/2017 Keagan Nix.2x1 Patellofemoral 11:15a [facility] M.D. 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 disorders, right AT [place] knee M70.51 Other bursitis of knee, right knee M22.41 Chondromalacia patellae, right knee M22.2x2 Patellofemoral disorders, left knee M70.52 Other bursitis of knee, left knee M22.42 Chondromalacia patellae, left knee Office Visit 02/07/2015 11:00a Neurosurgery Scott Snow 723.1 Cervicalgia [facility] M.D. 721.0 Spondylosis Cervical W/O Myelopathy Plan of Treatment Future Appointment(s):05/19/2018 11:00 am - Sheldon Jimenez M.D. at [facility] AT [place]/06/2018 - Sheldon Jimenez M.D.M17.11 Unilateral primary osteoarthritis, right kneeNew Medication:Oxycodone HCL 10 mg - one tab by mouth qhs as needed (in addition to the 4 5 mg tabs daily)Z47.89 Encounter for other orthopedic besfqejceW01.651 Presence of right artificial knee jointFollow up:2 to 3 weeks
--- NOTE | 2018-05-12 16:42 | ED ---
Lower Extremity - HPI Summary HPI Summary: Patient is a 42-year-old female with history of a right knee replacement per Dr. Jimenez resenting to the ED with possible patellar dislocation which occurred earlier this afternoon. She states she was able to reduce the patella at home. She also endorses some redness, swelling, incisional drainage and warmth to the knee over the past few days. She was prescribed doxycycline 2 days ago and symptoms improved. She denies any of the symptoms currently. She has recently weaned off her walker and had started using a cane. She does admit to not wearing her knee brace this afternoon when this occurred. Denies any other symptoms at this time. She's been denying any fevers, sweats, chills the last few days. - History of Current Complaint Chief Complaint: EDExtremityLower Stated Complaint: RT LEG PAIN Time Seen by Provider: 05/12/18 15:27 Hx Obtained From: Patient Mechanism Of Injury: Twisted Onset of Pain: Hours Onset/Duration: Hours Severity Initially: Mild Severity Currently: Mild Pain Intensity: 6 Pain Scale Used: 0-10 Numeric Timing: Constant Location: Is Discrete @ - right knee Character Of Pain: Aching Associated Signs And Symptoms: Negative: Swelling, Redness, Bruising, Fever, Weakness Aggravating Factor(s): Standing, Ambulation Alleviating Factor(s): Rest Able to Bear Weight: No - Risk Factors DVT Risk Factors: Negative, Recent Surgery Septic Arthritis Risk Factor: Negative - Allergies/Home Medications Allergies/Adverse Reactions: Allergies Allergy/AdvReac Type Severity Reaction Status Date / Time vancomycin Allergy Severe Itching Verified 05/12/18 15:36 and keli Adhesive Tape [Paper Tape] Allergy Rash Verified 05/12/18 15:36 PMH/Surg Hx/FS Hx/Imm Hx Previously Healthy: Yes Endocrine/Hematology History: Reports: Hx Thyroid Disease GI History: Reports: Hx Gastroesophageal Reflux Disease History: Reports: Hx Kidney Stones Musculoskeletal History: Reports: Hx Arthritis Sensory History: Reports: Hx Contacts or Glasses - glasses Denies: Hx Hearing Aid Opthamlomology History: Reports: Hx Contacts or Glasses - glasses Neurological History: Reports: Hx Migraine, Hx Nerve Disease - nerve damage RLE from a previous surgery- has drop foot Psychiatric History: Reports: Hx Anxiety, Hx Depression - Cancer History Hx Chemotherapy: No - Surgical History Surgery Procedure, Year, and Place: bilat knees arthroscopic surgeries. lateral release right knee, back surgery for herniated disc 2013. left rotator cuff repair. neck surgery 2007, kidney stone surgery. tubal ligation, UTERINE ablation. bone stimulator [id number]. injections in back, neck, knees for pain Hx Anesthesia Reactions: No - Immunization History Hx Pertussis Vaccination: No Immunizations Up to Date: Yes Infectious Disease History: No Infectious Disease History: Reports: Hx of Known/Suspected MRSA - ICU swab Denies: Traveled Outside the [place] in Last 30 Days - Social History Occupation: Unemployed Lives: With Family Alcohol Use: None Hx Substance Use: No Substance Use Type: Reports: None Substance Use Comment - Amount & Last Used: for pain- occassionally Hx Tobacco Use: Yes Smoking Status (MU): Heavy Every Day Tobacco Smoker Amount Used/How Often: 1 ppd since [age] years old, off and on Review of Systems Constitutional: Negative Negative: Fever, Chills, Fatigue, Skin Diaphoresis Negative: Palpitations, Chest Pain Negative: Shortness Of Breath, Cough Genitourinary: Negative Positive: no symptoms reported, see HPI Positive: Arthralgia - right knee pain Positive: Other - warmth to the knee Neurological: Negative All Other Systems Reviewed And Are Negative: Yes Physical Exam Triage Information Reviewed: Yes Vital Signs On Initial Exam: Initial Vitals Temp Pulse Resp BP Pulse Ox 97.7 F 101 18 151/78 99 05/12/18 15:30 05/12/18 15:30 05/12/18 15:30 05/12/18 15:30 05/12/18 15:30 Vital Signs Reviewed: Yes Appearance: Positive: Well-Appearing, Well-Nourished Skin: Positive: Warm, Skin Color Reflects Adequate Perfusion, Other - slight warmth to the knee without erythema or swelling or drainage at the incision site Eyes: Positive: EOMI, JAVED, Conjunctiva Clear Neck: Positive: Supple, Nontender, No Lymphadenopathy Respiratory/Lung Sounds: Positive: Clear to Auscultation, Breath Sounds Present Cardiovascular: Positive: RRR, Pulses are Symmetrical in both Upper and Lower Extremities Musculoskeletal: Positive: Pain @ - right knee pain Neurological: Positive: Speech Normal Psychiatric: Positive: Normal, Affect/Mood Appropriate Diagnostics - Vital Signs Vital Signs Temp Pulse Resp BP Pulse Ox 05/12/18 15:30 97.7 F 101 18 151/78 99 - Laboratory Lab Statement: Any lab studies that have been ordered have been reviewed, and results considered in the medical decision making process. Lower Extremity Course/Dx - Course Course Of Treatment: Patient's evaluated for possible knee dislocation. Patient states she was able to get the patella reduced at home which was painful , and she is coming in for an assessment. She does endorse some redness, swelling, warmth and incisional drainage to the area the course of the past few days and was prescribed doxycycline. Culture obtained. Symptoms improved. I' ve advised she follow up with [facility] regarding her culture to assure she is on the correct antibiotic, however due to symptoms improvement, she does not likely need a change of antibiotics. Upon inspection, the incision is clean dry and intact. There is no drainage from the area. There is no erythema or swelling. There is slight warmth to the area which the patient admits this is at her baseline since having her knee replaced. She states she called Dr. Jimenez today who advised her to come to the ED for an assessment. X -rays obtained which showed no obvious displacement or fracture. - Diagnoses Differential Diagnosis/HQI/PQRI: Positive: Bursitis, Cellulitis, Fracture ( Closed), Fracture (Open), Infection Provider Diagnoses: Patellar dislocation Discharge - Sign-Out/Discharge Documenting (check all that apply): Patient Departure - Discharge Plan Condition: Stable Disposition: HOME Patient Education Materials: Knee Dislocation (ED) Referrals: Sheldon Jimenez MD [Medical Doctor] - No Primary Care Phys,NOPCP [Primary Care Provider] - Additional Instructions: Please follow up with Dr. Jimenez on Tuesday as scheduled Will not change abx since your knee is looking good without redness or swelling or drainage Continue with knee immobilizer and walker until your follow up - Billing Disposition and Condition Condition: STABLE Disposition: Home
[2018-05-12 16:49] VITALS: BP 131/85
== END | disposition home or self-care (01) ==
LOC: ED 15:22
DX: T84.022A Instability of internal right knee prosthesis, initial encounter (principal); Y83.9 Surgical procedure, unspecified as the cause of abnormal reaction of the patient, or of later complication, without mention of misadventure at the time of the procedure; Y92.9 Unspecified place or not applicable; E07.9 Disorder of thyroid, unspecified; K21.9 Gastro-esophageal reflux disease without esophagitis; Z87.442 Personal history of urinary calculi; F17.210 Nicotine dependence, cigarettes, uncomplicated
CPT/HCPCS: 99282

== ENCOUNTER 2018-10-16 05:48 | Inpatient (IN) | payer MEDICARE, MEDICAID ==
[~2018-10-16 05:48] MED LIST changes: -Buffered Lidocaine 0.9% SYRIN* 5 ML/SYR SYRINGE INTRADERM ONE; +Buffered Lidocaine 1% SYRIN* 1 ML/SYRINGE INTRADERM ONE; +Tranexamic Acid 1,000 MG in NS 0.9% 50 ML* (outpatient use) IV SCH
--- OUTSIDE RECORDS SUMMARY | 2018-10-16 05:52 | XMS REPORT | Continuity of Care Document ---
:1975 External Reference #:[id number] Author Name Clara Dunham Care Team Providers Name Role Phone Sheeba Ortez MD Primary Care Physician Unavailable Payers Date Identification Numbers Payment Provider Subscriber Policy Number: [id number] Medicare [place] العراقي PayID: [id number] [address] [place] [address] Policy Number: [id number] Medicaid [place] العراقي Group Name: 1 1 [address] PayID: [id number] [place] [address] Advance Directives Description No Information Available Problems Active Problems Provider Date Neck pain Scott Kaufman M.D. Onset: 02/07/2015 Cervical spondylosis without myelopathy Scott Kaufman M.D. Onset: 2014 Derangement of knee Sheldon Jimenez M.D. Onset: 10/27/2017 Enthesopathy of knee Sheldon Jimenez M.D. Onset: 10/27/2017 Chondromalacia of patella Sheldon Jimenez M.D. Onset: 10/27/2017 Localized, primary osteoarthritis Sheldon Jimenez M.D. Onset: 05/04/2018 Arthroplasty of knee Sheldon Jimenez M.D. Onset: 05/04/2018 Encounter for other orthopedic aftercare Sheldon Jimenez M.D. 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 ETOH Use Denies alcohol use Tobacco Use Start: Unknown Patient is a current smoker, smokes every day Recreational Drug Use Denies Drug Use Tobacco Use Start: Unknown Heavy tobacco smoker (more than 10 cigarettes/day) Smoking Status Reviewed: 09/28/18 Heavy tobacco smoker (more than 10 cigarettes/day) Exercise Type/Frequency Exercises rarely Allergies, Adverse Reactions, Alerts Active Allergies Reaction Severity Comments Date Vancomycin Urticaria 02/07/2015 Medications Active Medications SIG Qnty Indications Ordering Date Provider Oxycodone HCL 1/2 to 1 tab 20tabs M17.11 Sheldon Jimenez, 09/20/2018 5mg Tablets by mouth daily M.D. as needed Amitriptyline HCL 1 tab daily 30tabs Sheldon Jimenez, 04/26/2018 25mg Tablets before bed M.D. Walker [place] Wheels/5 1 rolling 1un7.11 Sheldon Jimenez, 04/04/2018 Adjustment Holes/1-8" walker ht 71 M.D. 1-8" inches wt 220 [facility] lbs Shower Chair Disp 1 shower 1un. Holger Waterman, 04/04/2018 chair ht 71 wt220 Toilet Seat Elevator Disp 1 toilet 1un. Holger Waterman, 04/04/2018 [facility] seat lift ht 71 wt 220 Pristiq 1 by mouth Unknown 50mg Tablets ER 24HR every day Hydrochlorothiazide 1 by mouth Unknown 25mg Tablets every day Levothyroxine Sodium 1 by mouth Unknown 25mcg every day Tablets Nexium 1 by mouth Unknown 20mg Capsules DR every day Hydrochlorothiazide 1 by mouth Unknown 12.5mg every day Capsules Lyrica 1 by mouth tid Unknown 300mg Capsules Depakote 1 tab by mouth Unknown 500mg Tablets DR tid a day Valacyclovir HCL 1 tab daily Unknown 1gm Tablets History Medications Oxycodone HCL 1 tab by mouth bid 10tabs M17.11 Sheldon 08/11/2018 - 5mg Tablets as needed Leonard Jimenez 09/01/2018 Oxycodone HCL 1/2 to 1 tab by 14tabs 7.11 Sheldon 07/21/2018 - 5mg Tablets mouth daily as Leonard Jimenez 09/01/2018 needed Cyclobenzaprine HCL Take 1 Tablet Up To 60tabs Sheldon 05/22/2018 - 10mg Three Times A Day Leonard Jimenez 09/06/2018 Tablets as Needed Valium one tab by mouth 28tabs [place] 05/16/2018 - 2mg Tablets q12 hours as needed Leonard Jimenez 05/22/2018 for spasm Valium one tab by mouth q8 30tabs [place] 05/09/2018 - 2mg Tablets hours as needed Leonard Jimenez 05/16/2018 spasm Oxycodone HCL one half to one tab 22tabs M17.11 [place] 05/04/2018 - 10mg by mouth twice a Leonard Jimenez 09/20/2018 Tablets day as needed Valium 1 tab every 8 hours 30tabs [place] 04/26/2018 - 5mg Tablets as needed for spasm Leonard Jimenez 05/09/2018 Coumadin 1-3 tabs daily dose 90tabs [place] 04/26/2018 - 2mg Tablets per inr draws Leonard Jimenez 05/22/2018 Celebrex 1 tab every 12 30caps [place] 04/26/2018 - 100mg Capsules hours as needed for Leonard Jimenez 07/31/2018 pain Ultram 2 tab daily as 14tabs [place] 04/26/2018 - 50mg Tablets needed for pain, Leonard Jimenez 09/01/2018 take with 2 regular strength tylenol Oxycodone HCL Max 3 tabs daily, 21tabs [place] 04/26/2018 - 5mg Tablets can spread out or Leonard Jimenez 06/15/2018 use to help with exercising Docusate Sodium 1 tab every 12 90tabs [place] 04/26/2018 - 100mg hours as needed for Leonard Jimenez 09/06/2018 Tablets constipation Naprosyn One tab PO bid prn 60tabs M22.41 [place] 10/27/2017 - 500mg Tablets Leonard Jimenez 01/02/2018 Amoxicillin 1 by mouth three Unknown - 500mg times a day 07/03/2018 Capsules Naproxen Sodium ER take one /tablet Unknown - 500mg daily by mouth as 11/28/2017 Tablets ER 24HR needed for pain, if pain is severe, you may take up to 2 pills daily for 3 days as needed Multi Complete daily Unknown - Capsules 09/06/2018 Wellbutrin XL 1 by mouth every Unknown - 300mg day 02/27/2018 Tablets ER 24HR Suboxone strip sl twice a Unknown - 8'2 Film day 03/06/2018 Lyrica 1 by mouth a day Unknown - 300mg Capsules 10/03/2017 Abilify 1 by mouth every Unknown - 20mg Tablets day 07/31/2018 Cymbalta 1 by mouth every Unknown - 60mg Caps DR day 02/27/2018 Part Oxycodone-Acetaminophe 1 tab by mouth Unknown - n three times a day 09/27/2017 10-325mg Tablets as needed Sucralfate 1 by mouth twice a Unknown - 1gm Tablets day 09/27/2017 Omeprazole 1 by mouth every Unknown - 20mg Capsules day 09/27/2017 Quetiapine Fumarate 1 by mouth every Unknown - 100mg day 10/03/2017 Tablets Cyclobenzaprine HCL one by mouth three Unknown - 10mg times a day as 10/03/2017 Tablets needed spasm Immunizations Description No Information Available Vital Signs Date Vital Result Comment 09/28/2018 8:20am Height 71 inches 5'11" Weight 256.00 lb BP Systolic 126 mmHg BP Diastolic 68 mmHg Respiratory Rate 18 /min Body Temperature 97.8 F Pain Level 4 BMI (Body Mass Index) 35.7 kg/m2 09/12/2018 10:06am Height 71 inches 5'11" Weight 246.25 lb Heart Rate 101 /min BP Systolic Sitting 130 mmHg right upper arm BP Diastolic Sitting 82 mmHg right upper arm Respiratory Rate 22 /min Body Temperature 98.2 F Pain Level 4 left knee O2 % BldC Oximetry 98 % BMI (Body Mass Index) 34.3 kg/m2 08/11/2018 10:37am Height 71 inches 5'11" Weight 244.00 lb Heart Rate 80 /min BP Systolic Recheck 126 mmHg BP Diastolic Recheck 82 mmHg Respiratory Rate 16 /min Body Temperature 98.0 F BMI (Body Mass Index) 34.0 kg/m2 07/14/2018 10:07am Height 71 inches 5'11" Weight 251.00 lb Heart Rate 76 /min BP Systolic Recheck 132 mmHg BP Diastolic Recheck 86 mmHg Respiratory Rate 16 /min Body Temperature 97.8 F BMI (Body Mass Index) 35.0 kg/m2 06/22/2018 9:20am Height 71 inches 5'11" Weight 250.00 lb Heart Rate 76 /min BP Systolic Recheck 126 mmHg BP Diastolic Recheck 82 mmHg Respiratory Rate 16 /min Body Temperature 97.9 F BMI (Body Mass Index) 34.9 kg/m2 05/16/2018 9:14am Height 71 inches 5'11" Weight 230.00 lb Heart Rate 76 /min BP Systolic Recheck 132 mmHg BP Diastolic Recheck 84 mmHg Respiratory Rate 16 /min Body Temperature 98.1 F BMI (Body Mass Index) 32.1 kg/m2 05/04/2018 8:55am Height 71 inches 5'11" Weight [...] Date Facility Test Result H/L Range Note Laboratory test 05/08/2018 [facility] Partial 36.2 seconds N 26.0-36.[address] [place] [address] PTT [phone] Inr/Protime 05/08/2018 [facility] Inr 1.14 High 0.77-1.[address] [place] [address] [phone] CBC Auto Diff 04/11/2018 [facility] White Blood 9.3 10^3/uL N 3.5-10.[address] [place] [address] [phone] Red Blood Count 4.52 10^6/uL N 4.00-5.40 [...] Red Blood Cells % 0 Inr/Protime 04/11/2018 [facility] Inr 0.80 N 0.77-1.02 [address] [place] [address] [phone] Laboratory test 04/11/2018 [facility] Partial 29.6 seconds N 26.0-36.3 2 finding [address] [facility] [place] [address] PTT [phone] Urinalysis 04/11/2018 [facility] Urine Color Yellow Profile [address] [place] [address] [phone] Urine Appearance Clear Urine Specific [place] 1.023 N 1.010-1.030 Urine pH 5.0 N 5-9 Urine Urobilinogen Negative Negative Urine Ketones Negative Negative Urine Protein Negative Negative Urine Leukocytes Negative Negative Urine Blood Negative Negative * * Abnormal Negative 3 Urine Nitrite Negative Negative Urine Bilirubin Negative Negative Urine Glucose Negative Negative Type & Screen 04/11/2018 [facility] Patient Blood Type A Negative [address] [place] [address] [phone] Antibody Screen NEGATIVE Comp Metabolic Panel 04/11/2018 [facility] Sodium 140 mmol/L N 135-145 [address] [place] [address] [phone] Potassium 4.1 mmol/L N 3.5-5.0 Chloride 106 [...] Egfr 99.0 >60 4 Laboratory test 04/11/2018 [facility] HCG < 0.60 mIU/ mL 5 finding [address] [place] [address] [phone] Urine Culture And 04/11/2018 [facility] Urine Culture SEE RESULT [address] [place] [address] [phone] 1 AA 04/24 2 AA 04/24 3 [...] 20 mIU/mL 6 SEE RESULT BELOW Name: IRISH العراقي : [address]: Sheldon Jimenez MD Acct: [id number] Unit: [id number] AGE: 42 Location: [facility] Re04/11/18 SEX: F Status: REG REF SPEC: [id number] MAURICIO: 04/11/18-[address] [facility] [address]: Sheldon Jimenez MD REQ: [id number] RECD: 04/11/18 STATUS: COMP _ SOURCE: URINE SPDESC: ORDERED: Urine Culture COMMENTS: PAIGE 04/24 QUERIES: Urine Source: Clean Catch Procedure Result Reported Site Urine Culture Final 04/13/18- 0853 ML No Growth (<1,000 CFU/mL) * ML - Main Lab . END OF REPORT DEPARTMENT OF PATHOLOGY, [address] [place] [address] Andrea Isidro M.D. Director [facility] # [id number] Procedures Date Code Description Status 09/01/2018 73313 Arthroscopy, Knee,Surgical;Debridement/Shaving Articular Completed Cartldg 04/24/2018 50891 TKR Total Knee Replacement Completed 04/24/2018 27623 TKR Total Knee Replacement Completed 02/17/2018 60679 Arthroscopy,Knee,Diagnostic, W Or W/O Synovial BX Completed Encounters Type Date Location Provider Dx Diagnosis Office Visit 08/11/2018 Orthopedic Sheldon Jimenez, Z96.651 Presence of right 11:00a [facility] artificial knee [place] joint M22.42 Chondromalacia patellae, left knee Z47.1 Aftercare following joint replacement surgery Office Visit 03/28/2018 Keagan Chung M17.11 Unilateral primary 10:30a [facility] M.D. osteoarthritis, AT [place] right knee Office Visit 01/27/2018 Keagan Chung M22.41 Chondromalacia 10:15a [facility] M.D. patellae, right knee AT [place] M17.11 Unilateral primary osteoarthritis, right knee Office Visit 12/22/2017 Keagan Lujan2.2x1 Patellofemoral 11:15a [facility] M.D. disorders, right AT [place] knee M70.51 Other bursitis of knee, right [...] Cervical W/O Myelopathy Plan of Treatment Future Appointment(s):11/08/2018 11:30 am - Sheldon Jimenez M.D. at [facility]/16/2018 7:30 am - CHRISTA Cruz at [facility]/16/2018 7:30 am - Sheldon Jimenez M.D. at [facility].09/28/2018 - CHRISTA Cheek-CM17.12 Unilateral primary osteoarthritis, left kneeFollow up:Follow up: 4 weeks post op
--- OUTSIDE RECORDS SUMMARY | 2018-10-16 05:52 | XMS REPORT | Continuity of Care Document ---
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 12 hours as needed Amitriptyline HCL 1 tab daily 30tabs Sheldon Jimenez, 04/26/2018 25mg Tablets before bed M.D. Walker [place] Wheels/5 1 rolling 1un. Sheldon Jimenez, 04/04/2018 Adjustment Holes/1-8" walker ht 71 M.D. 1-8" inches wt 220 [facility] lbs Shower Chair Disp 1 shower . Rosalinaalena Waterman, 04/04/2018 chair ht 71 wt220 Toilet Seat Elevator Disp 1 toilet 1un. Holger Waterman, 04/04/2018 [facility] seat lift ht MD 71 wt 220 Pristiq 1 by mouth [...] Needed Valium one tab by mouth 28tabs [place] 05/16/2018 - 2mg Tablets q12 hours as needed Leonard Jimenez 05/22/2018 for spasm Valium one tab by mouth q8 30tabs [place] 05/09/2018 - 2mg Tablets hours as needed Leonard Jimenez 05/16/2018 spasm Oxycodone HCL one half to one tab 22tabs M17.11 [place] 05/04/2018 - 10mg by mouth twice a Leonard Jimenez 09/20/2018 Tablets day as needed Valium 1 tab every 8 hours 30tabs [place] 04/26/2018 - 5mg Tablets as needed for spasm Leonard Jimenez 05/09/2018 Coumadin 1-3 tabs daily dose 90tabs [place] 04/26/2018 - 2mg Tablets per inr draws Leonard Jimenez 05/22/2018 Celebrex 1 tab every 12 30caps Sheldon 04/26/2018 - 100mg Capsules hours as needed for eLonard Jimenez 07/31/2018 pain Ultram 2 tab daily as 14tabs [place] 04/26/2018 - 50mg Tablets needed for pain, Leonard Jimenez 09/01/2018 take with 2 regular strength tylenol Oxycodone HCL Max 3 tabs daily, 21tabs [place] 04/26/2018 - 5mg Tablets can spread out or Leonard Jimenez 06/15/2018 use to help with exercising Docusate Sodium 1 tab every 12 90tabs Sheldon 04/26/2018 - 100mg hours as needed for Leonard Jimenez 09/06/2018 Tablets constipation Naprosyn One tab PO bid prn 60tabs M22.41 [place] 10/27/2017 - 500mg Tablets Leonard Jimenez 01/02/2018 [...] Date Facility Test Result H/L Range Note Urinalysis Profile 10/02/2018 [facility] Urine Color Yellow [address] [place] [address] [phone] Urine Appearance Clear Urine Specific [place] 1.027 N 1.010-1.030 Urine pH 5.0 N 5-9 Urine Urobilinogen Negative Negative Urine Ketones Negative Negative Urine Protein Negative Negative Urine Leukocytes Negative Negative Urine Blood 2+ Abnormal Negative Urine Nitrite Negative Negative Urine Bilirubin Negative Negative Urine Glucose Negative Negative Urine White Blood Cell Trace(0-5/hpf) Absent Urine Red Blood Cell 3+(>10/hpf) Abnormal Absent Urine Bacteria Absent Absent Urine Squamous Epithelial Cell Present Abnormal Absent CBC Auto Diff 10/02/2018 [facility] White Blood 6.3 10^3/uL N 3.5-10.[address] [place] [address] [phone] Red Blood Count 4.67 10^6/uL N 3.70-4.87 Hemoglobin 15.3 g/dL N 12.0-16.0 Hematocrit 44 % N 35-47 Mean Corpuscular Volume 94 fL N 80-97 Mean Corpuscular Hemoglobin 33 pg High 27-31 Mean Corpuscular HGB Conc 35 g/dL N 31-36 Red Cell Distribution Width 16 % High 10.5-15 Platelet Count 175 10^3/uL N 150-450 Mean Platelet Volume 7.8 fL N 7.4-10.4 Abs Neutrophils 3.9 10^3/uL N 1.5-7.7 Abs Lymphocytes 2.0 10^3/uL N 1.0-4.8 Abs Monocytes 0.3 10^3/uL N 0-0.8 Abs Eosinophils 0.1 10^3/uL N 0-0.6 Abs Basophils 0.0 10^3/uL N 0-0.2 Abs Nucleated RBC 0.0 10^3/uL Granulocyte % 61.7 % Lymphocyte % 31.9 % Monocyte % 4.7 % Eosinophil % 1.3 % Basophil % 0.4 % Nucleated Red Blood Cells % 0.1 Comp Metabolic Panel 10/02/2018 [facility] Sodium 137 mmol/L N 135-[address] [place] [address] [phone] Potassium 3.7 mmol/L N 3.5-5.0 Chloride 99 mmol/L Low 101-111 Co2 Carbon Dioxide 31 mmol/L N 22-32 Anion Gap 7 mmol/L N 2-11 Glucose 92 mg/dL N 70-100 Blood Urea Nitrogen 20 mg/dL N 6-24 Creatinine 0.81 mg/dL N 0.51-0.95 BUN/Creatinine Ratio 24.7 High 8-20 Calcium 9.4 mg/dL N 8.6-10.3 Total Protein 6.9 g/dL N 6.4-8.9 Albumin 4.3 g/dL N 3.2-5.2 Globulin 2.6 g/dL N 2-4 Albumin/Globulin Ratio 1.7 N 1-3 Total Bilirubin 0.30 mg/dL N 0.2-1.0 Alkaline Phosphatase 57 U/L N 34-104 Alt 11 U/L N 7-52 Ast 12 U/L Low 13-39 Egfr Non- 77.9 >60 Egfr 94.3 >60 1 Inr/Protime 10/02/2018 [facility] Inr 0.92 N 0.82-1.[address] [place] [address] [phone] Laboratory test 10/02/2018 [facility] Partial 30.6 seconds N 26.0-36.[address] [place] [address] PTT [phone] Type & Screen 10/02/2018 [facility] Patient A Negative [address] [place] [address] [phone] Antibody Screen NEGATIVE Inr/Protime 05/08/2018 [facility] Inr 1.14 High 0.77-1.[address] [place] [address] [phone] Laboratory test 05/08/2018 [facility] Partial 36.2 N 26.0- 36.[address] [place] [address] Time PTT [phone] CBC Auto Diff 04/11/2018 [facility] White Blood 9.3 10^3/uL N 3.5-10.[address] [place], [place] [address] [phone] Red Blood Count 4.52 10^6/uL N 4.00-5.40 [...] Red Blood Cells % 0 Inr/Protime 04/11/2018 [facility] Inr 0.80 N 0.77-1.[address] [place] [address] [phone] Laboratory test 04/11/2018 [facility] Partial 29.6 seconds N 26.0-36.3 [address] [place] [address] PTT [phone] Urinalysis 04/11/2018 [facility] Urine Color Yellow Profile [address] [place] [address] [phone] Urine Appearance Clear Urine Specific [place] 1.023 N 1.010-1.030 Urine pH 5.0 N 5-9 Urine Urobilinogen Negative Negative Urine Ketones Negative Negative Urine Protein Negative Negative Urine Leukocytes Negative Negative Urine Blood Negative Negative * * Abnormal Negative 5 Urine Nitrite Negative Negative Urine Bilirubin Negative Negative Urine Glucose Negative Negative Type & Screen 04/11/2018 [facility] Patient Blood Type A Negative [address] [place] [address] [phone] Antibody Screen NEGATIVE Comp Metabolic Panel 04/11/2018 [facility] Sodium 140 mmol/L N 135-[address] [place] [address] [phone] Potassium 4.1 mmol/L N 3.5-5.0 Chloride 106 [...] Egfr Non- 81.8 >60 Egfr 99.0 >60 6 Laboratory test 04/11/2018 [facility] HCG < 0.60 mIU/ mL 7 finding [address] [place] [address] [phone] Urine Culture And 04/11/2018 [facility] Urine Culture SEE RESULT [address] [place] [address] [phone] 1 Because ethnic data is not always readily [...] 15-29 5 Kidney failure <15 (or dialysis) 2 Standard intensity warfarin therapeutic range: 2.0-3.0 High intensity warfarin therapeutic range: 2.5-3.5 3 AA 04/24 4 AA 04/24 5 *Ascorbic acid is present which may interfere with detection of blood. 6 Because ethnic data is not always readily [...] 15-29 5 Kidney failure <15 (or dialysis) 7 <5.0 Negative 5.0 - 25.0 Indeterminate (Repeat testing recommended after 72 hours) >25.0 Positive Perimenopausal women can display HCG levels of up to 20 mIU/mL 8 SEE RESULT BELOW Name: TYRA العراقي : [address]: Sheldon Jimenez MD Acct: [id number] Unit: [id number] AGE: 42 Location: [facility] Re04/11/18 SEX: F Status: REG REF SPEC: [id number] MAURICIO: 04/11/18-[address]: Sheldon Jimenez MD REQ: [id number] RECD: 04/11/18-1250 STATUS: COMP _ SOURCE: URINE SPDESC: ORDERED: Urine Culture COMMENTS: PAIGE 04/24 QUERIES: Urine Source: Clean Catch Procedure Result Reported Site Urine Culture Final 04/13/18- 0853 ML No Growth (<1,000 CFU/mL) * ML - Main Lab . END OF REPORT DEPARTMENT OF PATHOLOGY, [address] [place] [address] Andrea Isidro M.D. Director [facility] # [id number] Procedures Date Code Description Status 09/01/2018 29067 Arthroscopy, Knee,Surgical;Debridement/Shaving Articular Completed Cartldg 04/24/2018 29585 TKR Total Knee Replacement Completed 04/24/2018 46103 TKR Total Knee Replacement Completed 02/17/2018 96839 Arthroscopy,Knee,Diagnostic, W Or W/O Synovial BX Completed Encounters Type Date Location Provider Dx Diagnosis Office Visit 08/11/2018 Orthopedic Sheldon Jimenez, Z96.651 Presence of right 11:00a [facility] artificial knee [place] joint M22.42 Chondromalacia patellae, left knee Z47.1 Aftercare following joint replacement surgery Office Visit 03/28/2018 Keagan Chung M17.11 Unilateral primary 10:30a [facility] Jim[facility] M.D. osteoarthritis, AT [place] right knee Office Visit 01/27/2018 Keagan Chung M22.41 Chondromalacia 10:15a [facility] M.D. patellae, right knee AT [place] M17.11 Unilateral primary osteoarthritis, right knee Office Visit 12/22/2017 Keagan Lujan2.2x1 Patellofemoral 11:15a [facility] Jim[facility] M.D. disorders, right AT [place] knee M70.51 Other bursitis of knee, right knee M22.41 Chondromalacia patellae, right knee Office Visit 10/27/2017 Keagan Lujan2.2x1 Patellofemoral 10:00a [facility] Jim[facility] M.D. disorders, right AT [place] knee M70.51 Other bursitis of knee, right [...] Sheldon Jimenez M.D. at [facility]10/16/2018 7:30 am - CHRISTA Cruz at [facility].10/16/2018 7:30 am - Sheldon Jimenez M.D. at [facility]09/28/2018 - CHRISTA Cheek-CM17.12 Unilateral primary osteoarthritis, left kneeFollow up:Follow up: 4 weeks post op
[2018-10-16] MEDS ORDERED: ceFAZolin 2 GM PREMIX in ORs 2 GM/50 ML BAG IVPB ONE (05:57)
[2018-10-16] MEDS ORDERED: Buffered Lidocaine 1% SYRIN* 1 ML/SYRINGE INTRADERM ONE (05:58)
[2018-10-16] MEDS ORDERED: Acetaminophen TAB* 325 MG PO ONE (06:00)
[2018-10-16] MEDS ORDERED: Famotidine TAB* 20 MG PO ONE (06:00)
[2018-10-16] MEDS ORDERED: celeCOXIB CAP* 200 MG PO ONE (06:00)
[2018-10-16] MEDS ORDERED: Lactated Ringers 1000 ML Bag* 1,000 ML IV SCH (06:00)
[2018-10-16] MEDS ORDERED: Dexamethasone IV* 4 MG/ML 1 ML (4 MG) IV SLOW PU ONE (06:00)
[2018-10-16] MEDS ORDERED: Dexamethasone IV* 4 MG/ML 1 ML (4 MG) ONE (06:03)
[2018-10-16] MEDS ORDERED: Famotidine TAB* 20 MG ONE (06:03)
[2018-10-16] MEDS ORDERED: celeCOXIB CAP* 200 MG ONE (06:03)
[2018-10-16] MEDS ORDERED: Acetaminophen TAB* 325 MG ONE (06:03)
[2018-10-16] MEDS ORDERED: Bupivacaine 0.5%* 50 ML VIAL ONE (06:56)
[2018-10-16] MEDS ORDERED: Lidocaine 1% MPF wEPI 200,000* 30 ML SDV ONE (06:56)
[2018-10-16] MEDS ORDERED: ROPIVACAINE 5 MG/ML 30 ML BTL (0.5%) ONE (06:59)
[2018-10-16] MEDS ORDERED: Lidocaine 1%* 5 ML VIAL ONE (07:05)
[2018-10-16] MEDS ORDERED: Midazolam* 1 MG/ML 5 ML VIAL (5 MG) ONE (07:13)
[2018-10-16] MEDS ORDERED: Succinylcholine* 20 MG/ML 10 ML VIAL ONE (07:32)
[2018-10-16] MEDS ORDERED: fentaNYL* 50 MCG/ML 2 ML VIAL (100 MCG VIAL) ONE ×2 (07:32→09:33)
[2018-10-16] MEDS ORDERED: Propofol* 10 MG/ML 20 ML BTL ONE (07:32)
[2018-10-16] MEDS ORDERED: Rocuronium* 10 MG/ML VIAL ONE (07:32)
[2018-10-16] MEDS ORDERED: HYDROmorphone INJ1* 1 MG/ML SYRINGE ONE (07:33)
[2018-10-16] MEDS ORDERED: KETAMINE HCL* 50 MG/ML 10 ML VIAL ONE (07:33)
[2018-10-16] MEDS ORDERED: Naloxone* 0.4 MG/ML 1 ML VIAL IV PRN (07:58)
[2018-10-16] MEDS ORDERED: Acetaminophen IV 1GM/100ML * 1,000 MG/100 ML VIAL IVPB ONE (07:58)
[2018-10-16] MEDS ORDERED: DiMENhydriNATE IV* 50 MG/ML VIAL IV PUSH PRN (07:58)
[2018-10-16] MEDS ORDERED: Ketorolac INJ* 30 MG/ML 1 ML VIAL IV PRN (07:58)
[2018-10-16] MEDS ORDERED: PROCHLORPERAZINE INJ 5 MG/ML 2 ML VIAL IV PRN (07:58)
[2018-10-16] MEDS ORDERED: Naloxone* 0.4 MG/ML 1 ML VIAL IV PUSH PRN (08:00)
[2018-10-16] MEDS ORDERED: HYDROmorphone PCA* 20 MG/20 ML PCA.SYRING PCA SCH (08:00)
[2018-10-16] MEDS ORDERED: Ondansetron INJ* 2 MG/ML VIAL ONE (09:11)
[2018-10-16] MEDS ORDERED: HYDROmorphone PCA* 20 MG/20 ML PCA.SYRING ONE (09:25)
[2018-10-16] MEDS ORDERED: Magnesium Hydroxide LIQ* 30 ML UDC PO PRN (09:40)
[2018-10-16] MEDS ORDERED: Cyclobenzaprine TAB* 10 MG PO PRN (09:40)
[2018-10-16] MEDS ORDERED: Bisacodyl SUPP* 10 MG SUPP PR PRN (09:40)
[2018-10-16] MEDS ORDERED: Betamethasone Dip 0.05% ON(NF) 45 GM TUBE TOPICAL PRN (09:44)
[2018-10-16] MEDS ORDERED: traMADol TAB* 50 MG PO PRN (09:48)
[2018-10-16] MEDS ORDERED: Acetaminophen IV 1GM/100ML * 100 ML ONE (09:51)
[2018-10-16] MEDS ORDERED: Ketorolac INJ* 30 MG/ML 1 ML VIAL ONE (09:51)
[2018-10-16] MEDS ORDERED: traMADol TAB* 50 MG PO SCH (10:00)
--- NOTE | 2018-10-16 10:35 | OP ---
DATE OF OPERATION: 10/16/18 - ROOM #341 DATE OF : 79 ATTENDING SURGEON: Sheldon Jimenez MD ASSISTANT SOFTBALL COACH: Colleen Acosta RPA ANESTHESIA: Regional and general. PRE-OP DIAGNOSIS: Osteoarthritis, left knee. POST-OP DIAGNOSIS: Osteoarthritis, left knee. OPERATIVE PROCEDURE: Left total knee arthroplasty. ESTIMATED BLOOD LOSS: 75 cc. COMPLICATIONS: None. HARDWARE: Yoana trabecular metal #6 femur, E tibia, 10 mm polyethylene, 32 mm polyethylene button. No cement was used. SUMMARY: Ms. العراقي is a 43-year-old female who has had a long history of trouble with both of her knees. She had very specific wear on the medial femoral condyle but also had significant changes in the patellofemoral joint. She had undergone a diagnostic arthroscopy and she had a non-MRI compatible spinal stimulator, which confirmed wear in two of the compartments. Therefore, she was not a good candidate for a partial knee arthroplasty and I discussed with her a total knee arthroplasty should work well to decrease her pain and improve her function. She previously had undergone a right total knee arthroplasty at the end of last year and has done well with this. Considering her previous issue with back pain and being on chronic pain medication and then Suboxone, I discussed with her that she already has seen how the knee replacement does help but there is still pain with this and it is something that but she should be much more function without the pain being as limiting as she is already seeing that with her right knee. Other risks of surgery such as infection, scar formation, stiffness, DVT, pulmonary embolism, and continued pain were also discussed. She had been declared medically optimized and wished to proceed. DESCRIPTION OF PROCEDURE: The patient had a femoral nerve block placed in the holding area and was brought back to the OR. General endotracheal anesthesia was established. This was because of the spinal stimulator. Reis catheter was placed and tourniquet was placed over the proximal left thigh. Tourniquet was not used during the case. Left knee was prepped and then draped. Skin over the incision was infiltrated using 10 cc of a 50:50 mixture of 0.5% Marcaine with 1% Xylocaine with epinephrine. Midline incision was made, was carried down through the skin and subcutaneous tissues. Small bleeders encountered were ligated using electrocautery. Sharp parapatellar arthrotomy was made and a gush of clear yellowish joint fluid was encountered. Soft tissues were sharply elevated from the medial side of the tibia and the fat pad were sharply excised. Patella measured 19 mm in thickness and a 9 mm cut was taken. Patella was then easily subluxated laterally and the knee was flexed up. Nice exposure of the femoral condyles was obtained. Step drill was used to open the femoral canal and the intramedullary guide was placed. Outrigger was adjusted until it was parallel with the epicondyles and then pinned into place. Distal femoral cutting guide was then pinned into place and the intramedullary guide was removed. Distal femoral cut was taken and more was taken medially than laterally as part of the design. On the other side, she had been set to resect 2 mm at 3 degrees and was set for the same on this side. Femur was sized and she again sat between 6 and 7; 6 was again chosen. Holes were drilled and cutting guide was placed. Drill running through the superior hole did not clear the cortex and this was moved up 2 mm and then the drill sat nicely on the top side of the femur. Anterior and posterior femoral cuts were taken as were the chamfer cuts. Attention was turned to the tibia. Step drill was used to open the tibial canal at the junction of the lateral meniscus and the ACL. Intramedullary kendell was placed, an outrigger was assembled until appeared it would take 2 mm from the medial side. Cutting guide was then pinned into place and the proximal tibial cut was taken. Nice cut was obtained. Bits of meniscus were sharply removed and the 10 spacer block was placed. Drop kendell was run down and her alignment appeared perfect. Similarly coming out into full extension, she was nice and stable and easily flexed. I was very pleased with the alignment. Tibia was sized and she again sat nicely for a 6. 6 guide was then pinned into place and the proximal tibia was drilled. Attention was returned to the femur. 6 femur was then placed and adjusted so that it was lined up nicely with the medial condyle with the inner side of the lateral femoral condyle and trial was impacted into place. Saw was used to resect the remnants of the notch and holes were drilled. Trial tibia was then slid into place with 10 and she came out nicely until full extension with great stability and easily flexed past 120 degrees. Patella tracking without a trial was perfect. Patella was sized and she sat nicely for a 32 once again. Drill guide was compressed into place and drill was run. Trial was then snapped into place and she had the same wonderful tracking and motion. Trial instrumentation was removed and the knee was copiously pulse lavaged. Implants were brought on to the table. Tibia followed by femur and patella were all impacted into place. Nice solid bite was obtained with each piece and all needed to be impacted quite firmly. Knee was again copiously pulse lavaged and the posterior aspect of the medial side of the joint was injected with 10 cc of the Marcaine and lidocaine mixture with additional 10 cc into the lateral side. An additional 10 cc were injected into the lateral gutter. Knee was again copiously pulse lavaged and trialed with a 10 mm polyethylene. She had the same wonderful motion and stability with no lift off of the polyethylene. Trial was removed. The knee was again copiously pulse lavaged. Polyethylene was then snapped and 10 mm polyp was then snapped into place. Knee was again pulse lavaged and parapatellar arthrotomy was repaired using interrupted #1 Vicryl sutures. Knee was again pulse lavaged and the subcutaneous tissues were reapproximated using 2-0 Vicryl sutures. The knee was injected with additional 20 cc of the numbing mixture. Skin was closed using domenic. Sterile dressing and a Cryo/Cuff were applied in the OR. The patient was then extubated in the OR and was stable on transfer to the recovery room. [id number]/[facility] #: [id number] MANFRED
[2018-10-16] MEDS: oxyCODONE TAB* 5 MG TAB PO PRN ×3 (15:14→23:56)
[2018-10-16] MEDS: ceFAZolin 1 GM ADVAN(*) 1 GM in NS 0.9% 50 ML* 50 ML IVPB SCH ×2 (16:51→23:55)
[2018-10-16] MEDS ORDERED: Warfarin TAB(*) 10 MG PO ONE (17:00)
[2018-10-16] MEDS: Morphine INJ* 2 MG/ML 1 ML SYRINGE (TWO MG - NEW SYRINGE VERSION) IV PRN ×2 (18:56→21:26)
[2018-10-16] MEDS: Docusate CAP* 100 MG PO SCH (19:19)
[2018-10-16] MEDS: Magnesium Hydroxide LIQ* 30 ML UDC PO SCH (19:26)
[2018-10-16] MEDS: Pregabalin CAP(*) 300 MG PO SCH (21:22)
[2018-10-16] MEDS: Amitriptyline TAB* 10 MG PO SCH (21:22)
[2018-10-16] MEDS: D5W 1/2 NS 1000 ML BAG* 1,000 ML IV SCH (21:32)
[2018-10-16] MEDS: Acetaminophen TAB* 325 MG PO SCH (22:01)
[2018-10-17] MEDS: Morphine INJ* 2 MG/ML 1 ML SYRINGE (TWO MG - NEW SYRINGE VERSION) IV PRN ×2 (00:31→07:49)
[2018-10-17] MEDS: oxyCODONE TAB* 5 MG TAB PO PRN ×5 (05:16→21:47)
[2018-10-17] MEDS: Levothyroxine TAB* 25 MCG TAB PO SCH (05:53)
[2018-10-17] MEDS: Pregabalin CAP(*) 300 MG PO SCH ×3 (05:53→21:53)
[2018-10-17] MEDS: Acetaminophen TAB* 325 MG PO SCH ×3 (05:54→21:57)
[2018-10-17 06:31] LABS: Hematocrit 32 % (35-47); Hemoglobin 11.5 g/dL (12.0-16.0); Mean Platelet Volume 8.4 fL (7.4-10.4); Platelet Count 105 10^3/uL (150-450)
[2018-10-17 06:36] LABS: INR 0.92 (0.82-1.09)
[2018-10-17 06:50] LABS: BUN/Creatinine Ratio 17.9 (8-20); Calcium 7.8 mg/dL (8.6-10.3); EGFR African American 98.5 (>60); EGFR Non-African American 81.4 (>60); Potassium 3.3 mmol/L (3.5-5.0)
[2018-10-17] MEDS: ValACYclovir (*) 1 GM TAB PO SCH (07:50)
[2018-10-17] MEDS: Magnesium Hydroxide LIQ* 30 ML UDC PO SCH ×2 (07:50→21:47)
[2018-10-17] MEDS: Docusate CAP* 100 MG PO SCH ×2 (07:50→21:47)
[2018-10-17] MEDS: Pantoprazole TAB * 40 MG TAB PO SCH (07:50)
[2018-10-17] MEDS: CMCS:Desvenlafaxine (NF) 50 MG TAB PO SCH (07:50)
[2018-10-17] MEDS: Divalproex DR TAB(*) 500 MG PO SCH (07:50)
[2018-10-17] MEDS: Lurasidone(*) 20 MG TAB PO SCH (07:50)
[2018-10-17] MEDS: ceFAZolin 1 GM ADVAN(*) 1 GM in NS 0.9% 50 ML* 50 ML IVPB SCH (07:54)
[2018-10-17] MEDS ORDERED: Ketorolac INJ* 15 MG/ML 1 ML VIAL IV PUSH ONE (08:52)
[2018-10-17] MEDS ORDERED: celeCOXIB CAP* 100 MG PO SCH (09:00)
[2018-10-17] MEDS ORDERED: oxyCODONE/Acetamin 5/325 MG* TAB PO PRN (09:08)
[2018-10-17] MEDS: Heparin VIAL(*) 5000 UNITS/ML VIAL (FIVE THOUSAND) SUBCUT SCH ×3 (09:14→21:47)
[2018-10-17] MEDS: D5W 1/2 NS 1000 ML BAG* 1,000 ML IV SCH (09:16)
--- NOTE | 2018-10-17 09:16 | PN ---
Progress Note - Progress Note Date of Service: 10/17/18 SOAP: Subjective: [] Patient seen at bedside. She is complaining of left knee pain, she has been taking oxycodone 10 mg q 4 hr and morphine 2mg IV for breakthrough. Denies CP, SOB, dizziness, nausea. Objective: []General: NAD though tearful, alerrt and oriented x 3 LLE: left knee dressing CDI, cryo cuff in use, thigh is soft, DF/PF intact, D2+ , sensation intact to light tough distally Calves supple and nontender without erythema, edema or palpable cords Assessment: [] POD 1 sp left total knee replacement Plan: []WBAT PT/OT heparin bridge. coumadin 8 mg today Pain control: added percocet 5/325 mg po q4hr to alternate with oxycodone as needed. Goal to keep patient from large doses of opioids at discharge, so will not keep order to alternate jail. Need to watch for sedation and hold narcotics if sedated. She received celebrex this morning, I have ordered a dose of IV toradol 12 hours from last dose of celebrex at 20:00. Potassium low at 3.3, 20meq BID ordered and recheck tomorrow. Soft BP, continue normal eating and drinking, HCTZ is held ] Vital Signs Temp 98.0 F 10/17/18 03:44 Pulse 80 10/17/18 03:44 Resp 16 10/17/18 09:13 BP 104/55 10/17/18 03:44 Pulse Ox 100 10/17/18 03:44 Intake & Output 10/16/18 10/17/18 10/17/18 18:59 06:59 18:59 Intake Total 2120 1350 Output Total 525 950 Balance 1595 400 Intake: IV Fluids 1700 990 D51/2/NS 990 LR 1600 NS 50ML, Cefazolin 2G 50 TRANEXAMIC ACID 1GM 50ML 50 Oral 420 360 Output: Reis 525 950 Other: # Bowel Movements 0 Estimated Blood Loss 450 Comment Laboratory Last Values Hgb 11.5 g/dL (12.0-16.0) L 10/17/18 06:06 Hct 32 % (35-47) L 10/17/18 06:06 Plt Count 105 10^3/uL (150-450) L 10/17/18 06:06 MPV 8.4 fL (7.4-10.4) 10/17/18 06:06 INR (Anticoag Therapy) 0.92 (0.82-1.09) 10/17/18 06:06 Sodium 138 mmol/L (135-145) 10/17/18 06:06 Potassium 3.3 mmol/L (3.5-5.0) L 10/17/18 06:06 Chloride 105 mmol/L (101-111) 10/17/18 06:06 Carbon Dioxide 26 mmol/L (22-32) 10/17/18 06:06 Anion Gap 7 mmol/L (2-11) 10/17/18 06:06 BUN 14 mg/dL (6-24) 10/17/18 06:06 Creatinine 0.78 mg/dL (0.51-0.95) 10/17/18 06:06 Est GFR ( Amer) 98.5 (>60) 10/17/18 06:06 Est GFR (Non-Af Amer) 81.4 (>60) 10/17/18 06:06 BUN/Creatinine Ratio 17.9 (8-20) 10/17/18 06:06 Glucose 128 mg/dL (70-100) H 10/17/18 06:06 Calcium 7.8 mg/dL (8.6-10.3) L 10/17/18 06:06
[2018-10-17] MEDS: Potassium Chlor TAB* 20 MEQ TAB.ER PO SCH ×2 (09:43→21:47)
[2018-10-17] MEDS: Cyclobenzaprine TAB* 10 MG PO PRN ×2 (09:56→17:42)
[2018-10-17] MEDS: oxyCODONE/Acetamin 5/325 MG* TAB PO PRN ×4 (11:19→23:53)
[2018-10-17] MEDS ORDERED: Warfarin TAB(*) 4 MG PO ONE (17:00)
[2018-10-17] MEDS: Ketorolac INJ* 30 MG/ML 1 ML VIAL IV PUSH SCH ×2 (17:41→23:54)
[2018-10-17] MEDS ORDERED: Ketorolac INJ* 15 MG/ML 1 ML VIAL IV PUSH PRN (20:00)
[2018-10-17] MEDS: Amitriptyline TAB* 10 MG PO SCH (21:47)
[2018-10-18] MEDS: oxyCODONE TAB* 5 MG TAB PO PRN ×4 (01:53→15:26)
[2018-10-18] MEDS: Cyclobenzaprine TAB* 10 MG PO PRN ×2 (01:56→10:39)
[2018-10-18] MEDS: oxyCODONE/Acetamin 5/325 MG* TAB PO PRN ×3 (04:05→12:45)
[2018-10-18 05:23] LABS: Hematocrit 28 % (35-47); Hemoglobin 9.9 g/dL (12.0-16.0); Mean Platelet Volume 8.1 fL (7.4-10.4); Platelet Count 103 10^3/uL (150-450)
[2018-10-18 05:29] LABS: INR 1.58 (0.82-1.09)
[2018-10-18] MEDS: Acetaminophen TAB* 325 MG PO SCH ×2 (05:33→12:50)
[2018-10-18] MEDS: Heparin VIAL(*) 5000 UNITS/ML VIAL (FIVE THOUSAND) SUBCUT SCH ×3 (06:19→14:57)
[2018-10-18] MEDS: Pregabalin CAP(*) 300 MG PO SCH ×3 (06:19→12:42)
[2018-10-18] MEDS: Ketorolac INJ* 30 MG/ML 1 ML VIAL IV PUSH SCH ×2 (06:23→12:37)
[2018-10-18] MEDS: Levothyroxine TAB* 25 MCG TAB PO SCH (06:26)
[2018-10-18] MEDS ORDERED: Ondansetron INJ* 2 MG/ML VIAL IV PRN (08:09)
--- NOTE | 2018-10-18 08:13 | PN ---
Progress Note - Progress Note Date of Service: 10/18/18 SOAP: Subjective: []Pt seen at bedside. Her pain is well controlled today. She desires DC to home with the understanding that she cannot receive IV pain medication at home. Denies CP, SOB, dizziness, nausea. Objective: [] General: Well appearing, NAD LLE: left knee dressing changed, incision CDI no erythema, thigh soft, DF/PF intact, DP2+, sensation intact to light touch distally Calves supple and nontender without erythema, edema or palpable cords Assessment: []POD 2 sp LTK Plan: []WBAT PT/OT zofran for nausea pain: last night Dr Jimenez increased to percocet 5/325 2 tabs q4hr to alternate with doses of 10mg oxycocone q4hr. Vital Signs Temp 97.8 F 10/18/18 07:49 Pulse 104 10/18/18 07:49 Resp 18 10/18/18 08:47 BP 124/68 10/18/18 07:49 Pulse Ox 97 10/18/18 08:00 Intake & Output 10/17/18 10/18/18 10/18/18 18:59 06:59 18:59 Intake Total 3110 1000 Output Total 650 850 0 Balance 2460 150 0 Intake: IV Fluids 2690 D51/2/NS 2690 Oral 420 1000 Output: Urine 650 850 0 Laboratory Last Values Hgb 9.9 g/dL (12.0-16.0) L 10/18/18 05:08 Hct 28 % (35-47) L 10/18/18 05:08 Plt Count 103 10^3/uL (150-450) L 10/18/18 05:08 MPV 8.1 fL (7.4-10.4) 10/18/18 05:08 INR (Anticoag Therapy) 1.58 (0.82-1.09) H 10/18/18 05:08 Sodium 138 mmol/L (135-145) 10/17/18 06:06 Potassium 3.8 mmol/L (3.5-5.0) 10/18/18 05:08 Chloride 105 mmol/L (101-111) 10/17/18 06:06 Carbon Dioxide 26 mmol/L (22-32) 10/17/18 06:06 Anion Gap 7 mmol/L (2-11) 10/17/18 06:06 BUN 14 mg/dL (6-24) 10/17/18 06:06 Creatinine 0.78 mg/dL (0.51-0.95) 10/17/18 06:06 Est GFR ( Amer) 98.5 (>60) 10/17/18 06:06 Est GFR (Non-Af Amer) 81.4 (>60) 10/17/18 06:06 BUN/Creatinine Ratio 17.9 (8-20) 10/17/18 06:06 Glucose 128 mg/dL (70-100) H 10/17/18 06:06 Calcium 7.8 mg/dL (8.6-10.3) L 10/17/18 06:06
[2018-10-18] MEDS ORDERED: Ondansetron ODT TAB* 4 MG SL PRN (08:23)
[2018-10-18] MEDS: Potassium Chlor TAB* 20 MEQ TAB.ER PO SCH (08:37)
[2018-10-18] MEDS: Magnesium Hydroxide LIQ* 30 ML UDC PO SCH (08:37)
[2018-10-18] MEDS: Docusate CAP* 100 MG PO SCH (08:37)
[2018-10-18] MEDS: Pantoprazole TAB * 40 MG TAB PO SCH (08:37)
[2018-10-18] MEDS: Lurasidone(*) 20 MG TAB PO SCH (08:38)
[2018-10-18] MEDS: Divalproex DR TAB(*) 500 MG PO SCH (08:38)
[2018-10-18] MEDS: CMCS:Desvenlafaxine (NF) 50 MG TAB PO SCH (08:38)
[2018-10-18] MEDS: ValACYclovir (*) 1 GM TAB PO SCH (08:38)
[2018-10-18] MEDS ORDERED: celeCOXIB CAP* 100 MG PO SCH (09:00)
--- NOTE | 2018-10-18 11:59 | DS ---
Orthopedic Discharge Summary - Discharge Summary Date of Admission:10/16/18 Date of Discharge: 10/18/18 Date of Surgery: 10/16/18 Attending Orthopedic Provider: Dr Jimenez Pre-operative Diagnosis: Left knee arthritis Operative Procedure: left total knee replacement Disposition of Patient: home Condition of Patient: stable History: TYRA AKHTAR is a 43 year old F with years of increasingly severe left knee pain. Patient has failed conservative management and has elected to undergo a left total knee replacement Hospital Course: TYRA was admitted to [facility] on 10/16/18. Patient underwent a left total knee replacement without complication followed by a brief recovery in PACU and transfer to the Short Stay Surgical Unit in stable condition. Our physical therapy and occupational therapy also participated in this patients care. Post-op day 1: patient was alert and in no acute distress. Dressing was clean, dry and intact. Operative extremity dorsiflexion and plantarflexion intact, sensation intact to light touch distally , DP2+. Post-op day two: dressing was changed, incision was clean, dry and intact. Patient was deemed to be medically and orthopedically stable for discharge. Physical therapy goals were met. Home Medications Medication Instructions Recorded Confirmed Type Betamethasone Dip 0.05% ON(NF) 1 applic .SEE ORDER QAM PRN 04/11/18 10/16/18 History [Betamethasone Dipr 0.05% OINT(NF)] Cephalexin CAP* [Keflex 500 CAP*] 2,000 mg PO SEE INSTRUCTIONS 04/11/18 History Divalproex Sodium [Depakote] 3 tab PO QAM 04/11/18 10/16/18 History Esomeprazole(NF) [Nexium(NF)] 20 mg PO QAM 04/11/18 10/16/18 History Hydrochlorothiazide TAB* 25 mg PO QAM 04/11/18 10/16/18 History [Hydrodiuril TAB*] Levothyroxine TAB* [Synthroid 25 25 mcg PO QAM 04/11/18 10/16/18 History MCG TAB*] Mv-Min/Iron/Folic/Calcium/Vitk 1 tab PO QAM 04/11/18 10/16/18 History [Women's Multivitamin Tablet] Pregabalin CAP(*) [Lyrica CAP(*)] 300 mg PO 0600,1200,2100 04/11/18 10/16/18 History ValACYclovir (*) [Valtrex 1 GM(*)] 1 gm PO QAM 04/11/18 10/16/18 History Desvenlafaxine [Desvenlafaxine ER] 50 mg PO QAM 04/12/18 10/16/18 History Acetaminophen TAB* [Tylenol TAB*] 975 mg PO Q8H PRN 10/02/18 10/16/18 History Amitriptyline TAB* [Elavil TAB*] 10 mg PO BEDTIME 10/02/18 10/16/18 History Lurasidone(*) [Latuda] 20 mg PO QAM 10/02/18 10/16/18 History oxyCODONE TAB* [Roxycodone TAB 5 2 tab PO DAILY PRN 10/02/18 10/16/18 History mg*] Acetaminophen TAB* [Tylenol TAB*] 975 mg PO Q8HR tab MDD 4000 mg 10/18/18 Rx Docusate CAP* [Colace Cap*] 100 mg PO BID PRN #90 cap 10/18/18 Rx Warfarin TAB(*) [Coumadin TAB(*)] 2 mg PO DAILY #90 tab 10/18/18 Rx oxyCODONE TAB* [Roxycodone TAB 5 10 mg PO Q4H PRN #60 tab MDD 10 10/18/18 Rx mg*] oxyCODONE/Acetamin 5/325 MG* 10 mg PO Q4H PRN #60 tab MDD 10 10/18/18 Rx [Percocet 5/325 TAB*] Discharge Instructions following Orthopedic Surgery: Activity: * Weight Bearing as tolerated * Continue physical therapy and occupational therapy exercises as shown * Attend outpatient physical therapy Wound care: * OK to shower on post-op day 3, no bathing, swimming, or submerging wound. * Use gentle soap, pat dry. Cover with gauze, HUE wrap or tape. Call Orthopedic office for: * Increased drainage * Redness * Increased pain * Fever Go to ER with shortness of breath or chest pain. Diet: * Regular diet * Increase fluids and fiber to prevent constipation. * Continue to use stool softeners, call office if no bowel motion within 48 hours. Medications See Home Medication List in your packet for medications that you should take after discharge. DVT Prophylaxis: Coumadin Dosing: * Please note that you have been given 2 mg tablets. * Visiting home nurse to draw blood work for INR on Tuesday and . * You will be provided with dose instructions on Mondays and . * If you do not receive dosing instruction on dosing, please call our office right away. Please brooks dosing instructions on your calendar as they are provided to you. * Dosin/22: 4 mg * 10/19 recheck INR blood draw for further dosing instructions. Call orthopedic office if you do not receive dosing instructions. Pain Control: -Percocet Dosin/325 mg 1-2 tabs by mouth every 4-6 hours as needed for pain. Maximum of 10 tabs per day. -Oxycodone 5 mg tabs take 1-2 tabs every 4-6 hours as needed for pain. max 10 tabs per day You may alternate these medications if needed. If your pain is well controlled please take only the oxycodone and stop the percocet. Wean off of both the oxycodone and percocet as soon as pain allows. Hold both medications for sedation, confusion or dizziness. Please note that Percocet contains Tylenol (acetaminophen). Maximum daily dose of Tylenol is 4000 mg from all sources. Antibiotics are required prior to any dental work. FOLLOW UP: Follow up with Dr. Jimenez in 4 weeks call for appointment Please call our office with any questions or concerns ([phone])
[2018-10-18 12:21] VITALS: BP 146/73
--- NOTE | 2018-10-18 14:57 | CONSULT ---
Subjective Date of Service: 10/18/18 Interval History: 43 yo F with PMH hypothyroidism, mood d/o, HTN, pain who presented for joint replacement and course c/b pain control alogn with persistent tachycardia, sinus. Pt is pain free now without any complaints, denies CP SOB GI or new MSK or skin complaints. RR normal, O2 sats normal, BP stable Medicine is consulted for persistent tachycardia Labs: Anemia to 9.9, Ortho aware EKG: Sinus tachycardia CXR: Normal Family History: Unchanged from Admission Social History: Unchanged from Admission Past Medical History: Unchanged from Admission Review of Systems - Measurements Intake and Output: Intake and Output Last 24 Hours 10/16/18 10/17/18 10/18/18 10/19/18 06:59 06:59 06:59 06:59 Intake Total 3470 4110 1770 Output Total 1475 1500 550 Balance 1994 2610 1220 Weight 252 lb Intake: IV Fluids 2690 2690 D51/2/NS 990 2690 LR 1600 NS 50ML, Cefazolin 2G 50 TRANEXAMIC ACID 1GM 50ML 50 Oral 780 1420 1770 Output: Urine 1500 550 Reis 1475 Other: # Bowel Movements 0 Estimated Blood Loss 450 Comment - Review of Systems General Comments: As per HPI Objective Active Medications: Acetaminophen (Tylenol Tab*) 975 mg PO Q8HR [facility] Last Admin: 10/18/18 12:50 Dose: Not Given Amitriptyline HCl (Elavil Tab*) 10 mg PO BEDTIME [facility] Last Admin: 10/17/18 21:47 Dose: 10 mg Betamethasone Dipropionate (Betamethasone Dipr 0.05% Oint(Nf)) 1 applic TOPICAL QAM PRN PRN Reason: shingles rash Bisacodyl (Dulcolax Supp*) 10 mg SC DAILY PRN PRN Reason: constipation Cyclobenzaprine HCl (Flexeril Tab*) 10 mg PO TID PRN PRN Reason: SPASMS Last Admin: 10/18/18 10:39 Dose: 10 mg Desvenlafaxine Succinate (Pristiq (Nf)) 50 mg PO QAM [facility] Last Admin: 10/18/18 08:38 Dose: 50 mg Divalproex Sodium (Depakote Dr Tab(*)) 1,500 [facility] Last Admin: 10/18/18 08:38 Dose: 1,500 mg Docusate Sodium (Colace Cap*) 100 mg PO BID [facility] Last Admin: 10/18/18 08:37 Dose: 100 mg Heparin Sodium (Porcine) (Heparin Vial(*)) 5,000 units SUBCUT Q8HR [facility] Last Admin: 10/18/18 13:57 Dose: Not Given Hydrochlorothiazide (Hydrodiuril Tab*) 25 mg PO DAILY [facility] Dextrose/Sodium Chloride (D5w 1/2 Ns 1000 Ml Bag*) 1,000 mls @ 100 mls/hr IV PER RATE [facility] Last Admin: 10/17/18 09:16 Dose: 100 mls/hr Ketorolac Tromethamine (Toradol Inj*) 30 mg IV PUSH Q6H [facility] Last Admin: 10/18/18 12:37 Dose: Not Given Lactulose (Lactulose*) 30 ml PO BID PRN PRN Reason: CONSTIPATION Levothyroxine Sodium (Synthroid Tab*) 25 mcg PO QAM@0600 [facility] Last Admin: 10/18/18 06:26 Dose: 25 mcg Lurasidone HCl (Latuda) 20 mg PO QAM [facility] Last Admin: 10/18/18 08:38 Dose: 20 mg Magnesium Hydroxide (Milk Of Magnesia Liq*) 30 ml PO BID [facility] Last Admin: 10/18/18 08:37 Dose: 30 ml Magnesium Hydroxide (Milk Of Magnesia Liq*) 30 ml PO Q6H PRN PRN Reason: constipation Morphine Sulfate (Morphine Inj (Syringe))*) 2 mg IV Q2H PRN PRN Reason: PAIN - BREAKTHROUGH Last Admin: 10/17/18 07:49 Dose: 2 mg Ondansetron HCl (Zofran Inj*) 4 mg IV Q6H PRN PRN Reason: NAUSEA Ondansetron HCl (Zofran Odt Tab*) 4 mg SL Q6H PRN PRN Reason: NAUSEA/VOMITING Last Admin: 10/18/18 08:48 Dose: 4 mg Oxycodone HCl (Roxycodone Tab*) 10 mg PO Q4H PRN PRN Reason: PAIN - SEVERE Last Admin: 10/18/18 10:39 Dose: 10 mg Oxycodone/Acetaminophen (Percocet 5/325 Tab*) 2 tab PO Q4H PRN PRN Reason: PAIN - MODERATE TO SEVERE Stop: 10/18/18 23:59 Last Admin: 10/18/18 12:45 Dose: 2 tab Pantoprazole Sodium (Protonix Tab*) 40 mg PO QAM [facility]; Protocol Last Admin: 10/18/18 08:37 Dose: 40 mg Pharmacy Profile Note (Coumadin Daily Reminder*) 1 note FOLLOW UP 1700 [facility] Last Admin: 10/17/18 17:41 Dose: 1 note Potassium Chloride (Klor Con Er Tab*) 20 meq PO BID [facility] Last Admin: 10/18/18 08:37 Dose: 20 meq Pregabalin (Lyrica Cap(*)) 300 mg PO 0600,1200,2100 [facility] Last Admin: 10/18/18 12:42 Dose: 300 mg Valacyclovir HCl (Valtrex 1 Gm(*)) 1 gm PO [facility]; Protocol Last Admin: 10/18/18 08:38 Dose: 1 gm Vital Signs - 8 hr 10/18/18 10/18/18 10/18/18 07:49 08:00 08:38 Temperature 97.8 F Pulse Rate 104 Respiratory 16 18 18 Rate Blood Pressure 124/68 (mmHg) O2 Sat by Pulse 97 97 Oximetry 10/18/18 10/18/18 10/18/18 08:46 08:47 10:39 Temperature Pulse Rate Respiratory 16 18 18 Rate Blood Pressure (mmHg) O2 Sat by Pulse Oximetry 10/18/18 10/18/18 10/18/18 10:54 12:01 12:42 Temperature 99.3 F Pulse Rate 120 Respiratory 18 16 18 Rate Blood Pressure 146/73 (mmHg) O2 Sat by Pulse 95 Oximetry 10/18/18 10/18/18 10/18/18 12:43 12:45 13:38 Temperature Pulse Rate 121 Respiratory 18 18 Rate Blood Pressure (mmHg) O2 Sat by Pulse Oximetry 10/18/18 14:45 Temperature Pulse Rate Respiratory 18 Rate Blood Pressure (mmHg) O2 Sat by Pulse Oximetry Appearance: Pleasant woman in NAD Eyes: No Scleral Icterus Ears/Nose/Mouth/Throat: NL Teeth, Lips, Gums Neck: NL Appearance and Movements; NL JVP Respiratory: Symmetrical Chest Expansion and Respiratory Effort, Clear to Auscultation Cardiovascular: - - Sinus tach to 100 no MRG Abdominal: NL Sounds; No Tenderness; No Distention, No Hepatosplenomegaly Lymphatic: No Cervical Adenopathy Extremities: No Edema, - - L knee wrapped Skin: No Rash or Ulcers Neurological: Alert and Oriented x 3 Result Diagrams: 10/18/18 05:08 10/18/18 05:08 Assessment/Plan - Billing 43 yo F with PMH hypothyroidism, mood d/o, HTN, pain who presented for joint replacement and course c/b pain control alogn with persistent tachycardia, sinus. 1. Sinus tachycardia: Likely reflecting hyperadrenergic state in setting of prolonged pain and stress. Pt w/ sig chronic pain and polyphamracy at baseline Unlikely PE given heparin and coumadin, no e/o arrhythmia or other underlying medical process driving this. Safe for d/c and follow up with primary care and ortho to continue pain control. We will sign off as pt appears to be getting d/c. Thank you.
[2018-10-18] MEDS ORDERED: Hydrochlorothiazide TAB* 25 MG PO SCH (15:00)
== END 2018-10-18 15:25 | disposition home or self-care (01) | DRG 470 ==
LOC: AA 05:48 → SSU 09:40
PROVIDERS: ADMIT Orthopaedic Surgery; ATTEND Orthopaedic Surgery
PROC: 0SRD0JZ Replacement of Left Knee Joint with Synthetic Substitute, Open Approach (ICD-10-PCS; principal; 2018-10-16 07:30)
DX: M17.12 Unilateral primary osteoarthritis, left knee (principal); K21.9 Gastro-esophageal reflux disease without esophagitis; F31.9 Bipolar disorder, unspecified; F17.210 Nicotine dependence, cigarettes, uncomplicated; M25.462 Effusion, left knee; E03.9 Hypothyroidism, unspecified; I10 Essential (primary) hypertension; G89.29 Other chronic pain; M54.5 Low back pain; F41.9 Anxiety disorder, unspecified; Z79.890 Hormone replacement therapy; Z79.01 Long term (current) use of anticoagulants; Z87.442 Personal history of urinary calculi; Z86.14 Personal history of Methicillin resistant Staphylococcus aureus infection; Z96.651 Presence of right artificial knee joint; Z98.51 Tubal ligation status; Z88.1 Allergy status to other antibiotic agents; Z83.3 Family history of diabetes mellitus; Z80.9 Family history of malignant neoplasm, unspecified; Z91.048 Other nonmedicinal substance allergy status
CPT/HCPCS: 36415; 71045; 80048; 84132; 85014; 85018; 85049; 85610; 88305; 88311; 93005; A9270-GY; G8978-GP-CJ; G8979-GP-CI; J0330; J0690; J1100; J1170; J1644; J1885; J2001; J2250; J2270; J2405; J2704; J2795; J3010; J3490